=== PATIENT | female | born 1935 | race Caucasian/White ===

== ENCOUNTER 2019-12-15 10:55 | Inpatient (IN) ==
--- NOTE | 2019-12-15 11:25 | Emergency Department Note ---
Impression & Plan Pelvic ring fracture, Abdominal pain, lower ED Provider Note NAME: ABRAHAM GONZALEZ AGE: 84 SEX: F ARRIVES VIA: Ambulance INFORMANT: [Patient] ED PROVIDER(S): Franco Pfeiffer MD CHIEF COMPLAINT: Pelvic and lower abdominal pain PLAN: Disposition: Admitted Condition: [Good] MEDICAL DECISION MAKING: Patient presented complaining of lower abdominal and pelvic pain. On examination she had tenderness in the right groin area. The patient felt worse with movement. She had blood work obtained. This was unremarkable. Urinalysis was unremarkable. The patient was treated with a small dose of IV Dilaudid and felt better with this. CT imaging did not reveal any findings within the abdomen and pelvis except for a right ring fracture. On further discussion the patient did note sitting down hard the day before yesterday. Her symptoms started shortly after that. She is having difficulty ambulating. It did seem that she had some slight confusion on questioning therefore CT of her head was performed and did not reveal any acute traumatic findings. Because of the findings on the CT and her difficulty ambulating I felt management in the hospital would be necessary. Consultation was made with the hospitalist service. The patient was evaluated in the ER for further management. I gave my usual and customary discussion regarding this issue. Triage Nursing notes reviewed and agree them. Vital Signs: reviewed and remarkable for [no significant abnormalities] Differential diagnosis: Appendicitis, ovarian cyst, ovarian torsion, ectopic , TOA, PID, infections, diverticulitis, UTI, obstruction, mesenteric ischemia, aortic pathology, inflammatory bowel disease, renal colic, PUD, pancreatitis, biliary pathology, hernia, volvulus, constipation, musculoskeletal as well as other pathologies. ER treatment provided: IV Dilaudid 0.25 mg IV Zofran Diagnostics interpreted by me: Cardiac Monitoring: Cardiac monitoring ordered by me: The patient was placed on continuous cardiac monitoring and observed. It revealed a normal sinus rhythm at 70 beats per minute without ectopy or evidence of dysrhythmia. Laboratory studies: Unremarkable CBC and chemistry panel.Lactate negative. LFTs and lipase negative. Urinalysis did not reveal any signs of infection. Imaging studies: Right pubic ring fracture on CT imaging of the abdomen pelvis. I refer you to the EMR for further details. Consultation(s): [facility] [address] [facility] hospitalist service. HPI: The patient is a 84 year old female who presents to the Emergency Room with complaints of lower abdominal pain. This started this morning at 0700 and is intermittent and sharp. The patient also notes the following associated symptoms, pain radiating into the back, mild constipation, dry throat. The patient has tried no medication for relieving factors. Current pain is rated as 10/10 at its max, but currently 0 with rest. Pain worsens with Pt denies LOC, headache, fevers, chills, diaphoresis, visual changes, neck pain, chest pain, breathing difficulties, nausea, vomiting, back pain, melena, hematochezia, urinary symptoms, numbness, weakness, lymphadenopathy, rash, or other complaints. ROS: See above HPI for pertinent positives & negatives. A total of [10] systems reviewed and were otherwise negative. PAST MEDICAL HISTORY:[See Below] chronic kidney disease, hypothyroidism PAST SURGICAL HISTORY:[See Below] FAMILY HISTORY:[See Below] SOCIAL HISTORY:[See Below] lives alone HOME MEDICATIONS:[See Below] ALLERGIES:[See Below] VITALS:[See Below] PHYSICAL EXAMINATION: GENERAL: Awake, alert, well-appearing, in no distress HENT: Normocephalic, atraumatic. Oropharynx unremarkable. EYES: Normal conjunctiva. Sclera non-icteric. NECK: Inspection normal. Non-tender. Supple. No nuchal rigidity. FROM. No masses. RESPIRATORY: Clear to auscultation. No wheezes. No rales. Normal respiratory effort. CARDIAC: Normal rate. Normal rhythm. No murmurs. No rubs. Extremities warm and well perfused. Pulses equal. No JVD. GI: Soft, non-distended. Lower abdominal tenderness to palpation. No rebound or guarding. No masses. RECTAL: Deferred. MUSCULOSKELETAL: Atraumatic. Chest examination reveals no tenderness. The back is symmetrical on inspection without obvious abnormality. There is no CVA tenderness to palpation. No joint edema. LOWER EXTREMITIES: Calves are equal size bilaterally and non-tender. No edema. No discoloration. NEURO: Normal sensorium. No sensory or motor deficits noted. SKIN: No rash or jaundice noted. 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 CKD (chronic kidney disease), stage III Depression Dyslipidemia Heart disease Hypothyroid Osteoarthritis Vitamin D deficiency Surgical History (Updated 12/15/19 @ 15:23 by Micki Velásquez PA-C) H/O partial mastectomy H/O vein stripping History of left heart catheterization History of lumpectomy of left breast Hx of appendectomy Hx of tonsillectomy S/P coronary artery stent placement Family History (Updated 12/15/19 @ 15:24 by Micki Velásquez PA-C) Mother Cancer Hodgkins Father Heart disease Diabetes Stroke Hypertension Son Myocardial infarction Other No pertinent family history Social History Preferred Language: German Communication Ability: Effective Hearing Ability: Hard of Hearing Mobile Security Architect Required: No Beliefs That Will Affect Care: None marital status: / Current Living Situation: Alone current occupational status: retired Other Information That Helps Us Care for You: No Feels Safe at Home: Yes Safety Concerns: Feels Safe At This Time Smoking Status: Former smoker Tobacco Type: cigarettes ; Hx Alcohol Use: No Hx Substance Use: No Allergies Allergies Allergy/AdvReac Type Severity Reaction Status Date / Time atorvastatin Allergy Mild "ACHING Verified 12/15/19 12:47 MUSCLES AND BONES" codeine Allergy Unknown Unknown Verified 12/15/19 12:47 Penicillins Allergy Unknown Unknown Verified 12/15/19 12:47 tetracycline Allergy Unknown Unknown Verified 12/15/19 12:47 clonazepam AdvReac Mild created Verified 12/15/19 12:47 anxiety opium tincture AdvReac Mild dizziness Verified 12/15/19 12:47 diazepam AdvReac Anxiety Verified 12/15/19 12:47 Home Meds Home Medications Medication Instructions Recorded Confirmed amlodipine 2.5 mg PO QAM 03/05/19 12/15/19 aspirin 81 mg PO HS 03/05/19 12/15/19 bupropion HCl 100 mg PO QAM 03/05/19 12/15/19 isosorbide mononitrate 60 mg PO QAM 03/05/19 12/15/19 levothyroxine 75 mcg PO QAM 03/05/19 12/15/19 nitroglycerin 0.4 mg SUBLINGUAL DIRECTED PRN 03/05/19 12/15/19 rosuvastatin 40 mg PO QAM 03/05/19 12/15/19 venlafaxine 75 mg PO QAM 03/05/19 12/15/19 venlafaxine 150 mg PO QAM 03/05/19 12/15/19 nystatin 1 appln TOP BID PRN 06/14/19 12/15/19 potassium chloride 10 meq PO BID 12/15/19 12/15/19 Results & Data (ED) Vital Signs Vital Signs - 24 hr 12/15/19 11:03 12/15/19 11:48 12/15/19 12:37 Temperature 36.6 C Temperature Source Oral Pulse Rate 78 67 Pulse Rate from SpO2 Sensor 66 Respiratory Rate 18 19 Respiratory Effort / Characteristics Non-Labored Spontaneous Respiratory Depth Normal Respiratory Pattern Regular Blood Pressure 145/72 H 111/66 Blood Pressure Mean 96 90 Blood Pressure Position Lying Pulse Oximetry 96 97 95 Oxygen Delivery Method Room Air Room Air Room Air Sepsis Recent Fever Within 48 Hours No Sepsis New/Unexplained Change in Mental Status No Sepsis Action Taken by Nursing No Action Required 12/15/19 12:41 12/15/19 13:00 12/15/19 13:30 Temperature Temperature Source Pulse Rate 66 69 69 Pulse Rate from SpO2 Sensor 66 69 70 Respiratory Rate 17 18 20 Respiratory Effort / Characteristics Respiratory Depth Respiratory Pattern Blood Pressure Blood Pressure Mean Blood Pressure Position Pulse Oximetry 96 94 95 Oxygen Delivery Method Room Air Room Air Room Air Sepsis Recent Fever Within 48 Hours Sepsis New/Unexplained Change in Mental Status Sepsis Action Taken by Nursing 12/15/19 13:31 12/15/19 13:32 12/15/19 14:00 Temperature Temperature Source Pulse Rate 70 68 71 Pulse Rate from SpO2 Sensor 70 68 72 Respiratory Rate 18 18 23 Respiratory Effort / Characteristics Respiratory Depth Respiratory Pattern Blood Pressure 125/67 118/61 Blood Pressure Mean 97 80 Blood Pressure Position Pulse Oximetry 95 95 93 Oxygen Delivery Method Room Air Room Air Room Air Sepsis Recent Fever Within 48 Hours Sepsis New/Unexplained Change in Mental Status Sepsis Action Taken by Nursing 12/15/19 14:01 12/15/19 14:30 12/15/19 14:31 Temperature Temperature Source Pulse Rate 72 75 72 Pulse Rate from SpO2 Sensor 73 75 68 Respiratory Rate 17 15 17 Respiratory Effort / Characteristics Respiratory Depth Respiratory Pattern Blood Pressure 115/74 Blood Pressure Mean 97 Blood Pressure Position Pulse Oximetry 95 96 97 Oxygen Delivery Method Room Air Room Air Room Air Sepsis Recent Fever Within 48 Hours Sepsis New/Unexplained Change in Mental Status Sepsis Action Taken by Nursing Laboratory Data Result diagrams: 12/15/19 11:43 12/15/19 11:43 Lab Results 12/15/19 12/15/19 12/15/19 Range/Units 11:43 11:43 11:43 WBC 7.83 (4.8-10.8) K/uL RBC 4.22 (4.2-5.4) M/uL Hgb 12.1 (12.0-16.0) g/dL Hct 37.8 (37-47) % MCV 89.6 (80-100) fL MCH 28.7 (25-34) pg MCHC 32.0 (32-36) g/dL RDW Std Deviation 46.2 (36.4-46.3) fL RDW Coeff of Ever 14.1 (11.5-14.5) % Plt Count 192 (130-400) K/uL MPV 10.2 (7.4-10.4) fL Immature Gran % (Auto) 0.3 % Neut % (Auto) 68.0 % Lymph % (Auto) 18.4 % [place] % (Auto) 9.8 % Eos % (Auto) 3.2 % Baso % (Auto) 0.3 % Immature Gran # (Auto) 0.02 (0.00-0.02) K/uL Neut # (Auto) 5.33 (1.4-6.5) K/uL Lymph # (Auto) 1.44 (1.2-3.4) K/uL [place] # (Auto) 0.77 H (0.11-0.59) K/uL Eos # (Auto) 0.25 (0-0.5) K/uL Baso # (Auto) 0.02 (0-0.2) K/uL Sodium 141 (136-145) mmol/L Potassium 3.5 (3.5-5.1) mmol/L Chloride 108 H (98-107) mmol/L Carbon Dioxide 27 (21-32) mmol/L Anion Gap 6.0 (3-11) BUN 18 (7-18) mg/dl Creatinine 0.97 (0.6-1.2) mg/dl Est Cr Clr Drug Dosing 43.1 ml/min Est GFR ( Amer) 62.2 Est GFR (Non-Af Amer) 53.6 BUN/Creatinine Ratio 18.7 (10-20) Glucose 92 (70-99) mg/dl Lactate 0.7 (0.4-2.0) mmol/L Calcium 9.1 (8.5-10.1) mg/dl Total Bilirubin 0.6 (0.2-1) mg/dl AST 16 (15-37) U/L ALT 32 (12-78) U/L Alkaline Phosphatase 64 (45-117) U/L Total Protein 6.9 (6.4-8.2) gm/dl Albumin 3.4 (3.4-5.0) gm/dl Globulin 3.5 (2.5-4.0) gm/dl Albumin/Globulin Ratio 1.0 (0.9-2) Lipase 87 (73-393) U/L 25-OH Vitamin D Total (30-100) ng/ml TSH (0.300-4.500) uIu/ml Urine Color Urine Appearance (Clear) Urine pH (4.5-7.5) Ur Specific [place] (1.000-1.030) Urine Protein (Negative) Urine Glucose (UA) (Negative) Urine Ketones (Negative) Urine Blood (Negative) Urine Nitrite (Negative) Urine Bilirubin (Negative) Urine Urobilinogen (Negative) Ur Leukocyte Esterase (Negative) Urine WBC (Auto) (0-5) /hpf Urine RBC (Auto) (0-4) /hpf U Hyaline Cast (Auto) (0-5) /lpf U Epithel Cells (Auto) (0-5) /lpf Urine Bacteria (Auto) (Negative) 12/15/19 12/15/19 12/15/19 Range/Units 11:43 11:43 13:30 WBC (4.8-10.8) K/uL RBC (4.2-5.4) M/uL Hgb (12.0-16.0) g/dL Hct (37-47) % MCV (80-100) fL MCH (25-34) pg MCHC (32-36) g/dL RDW Std Deviation (36.4-46.3) fL RDW Coeff of Ever (11.5-14.5) % Plt Count (130-400) K/uL MPV (7.4-10.4) fL Immature Gran % (Auto) % Neut % (Auto) % Lymph % (Auto) % [place] % (Auto) % Eos % (Auto) % Baso % (Auto) % Immature Gran # (Auto) (0.00-0.02) K/uL Neut # (Auto) (1.4-6.5) K/uL Lymph # (Auto) (1.2-3.4) K/uL [place] # (Auto) (0.11-0.59) K/uL Eos # (Auto) (0-0.5) K/uL Baso # (Auto) (0-0.2) K/uL Sodium (136-145) mmol/L Potassium (3.5-5.1) mmol/L Chloride (98-107) mmol/L Carbon Dioxide (21-32) mmol/L Anion Gap (3-11) BUN (7-18) mg/dl Creatinine (0.6-1.2) mg/dl Est Cr Clr Drug Dosing ml/min Est GFR ( Amer) Est GFR (Non-Af Amer) BUN/Creatinine Ratio (10-20) Glucose (70-99) mg/dl Lactate (0.4-2.0) mmol/L Calcium (8.5-10.1) mg/dl Total Bilirubin (0.2-1) mg/dl AST (15-37) U/L ALT (12-78) U/L Alkaline Phosphatase (45-117) U/L Total Protein (6.4-8.2) gm/dl Albumin (3.4-5.0) gm/dl Globulin (2.5-4.0) gm/dl Albumin/Globulin Ratio (0.9-2) Lipase (73-393) U/L 25-OH Vitamin D Total 25.7 L (30-100) ng/ml TSH 2.800 (0.300-4.500) uIu/ml Urine Color Yellow Urine Appearance Cloudy A (Clear) Urine pH 7.5 (4.5-7.5) Ur Specific [place] 1.016 (1.000-1.030) Urine Protein 2+ H (Negative) Urine Glucose (UA) Negative (Negative) Urine Ketones Negative (Negative) Urine Blood Trace H (Negative) Urine Nitrite Negative (Negative) Urine Bilirubin Negative (Negative) Urine Urobilinogen Negative (Negative) Ur Leukocyte Esterase Negative (Negative) Urine WBC (Auto) 0 (0-5) /hpf Urine RBC (Auto) 0-4 (0-4) /hpf U Hyaline Cast (Auto) 1-5 (0-5) /lpf U Epithel Cells (Auto) 20-30 H (0-5) /lpf Urine Bacteria (Auto) Negative (Negative) Administered Medications Hydrocodone Bitart/Acetaminophen ([place] 5/325) 1 tab PO Q6 PRN PRN Reason: Moderate Pain Stop: 12/29/19 17:33 Last Admin: 12/15/19 18:12 Dose: 1 tab Documented by: [id number] Discontinued Medications Hydromorphone HCl (Dilaudid) 0.25 mg IV NOW STA Stop: 12/15/19 12:30 Last Admin: 12/15/19 12:39 Dose: 0.25 mg Documented by: [id number] Ondansetron HCl (Zofran) 4 mg IV NOW STA Stop: 12/15/19 12:30 Last Admin: 12/15/19 12:39 Dose: 4 mg Documented by: [id number] Discharge Plan Visit Data *Final* Discharge Date/Time: 12/15/19 16:51 Chief Complaint: Groin Pain Stated Complaint: groin / upper leg pain ED Provider: Franco Pfeiffer Discharge Problem: Pelvic ring fracture, Abdominal pain, lower Patient Disposition: Admitted As Inpatient Discharge Instructions Interventions: ED Discharge Assessment Last Done: 12/15/19 16:51
[2019-12-15 11:56] LABS: Basophils # (auto) 0.02 K/uL (0-0.2); Basophils % (auto) 0.3 %; Eosinophils # (auto) 0.25 K/uL (0-0.5); Eosinophils % (auto) 3.2 %; Hematocrit (blood only) 37.8 % (37-47); Hemoglobin 12.1 g/dL (12.0-16.0); Immature Granulocytes # (auto) 0.02 K/uL (0.00-0.02); Immature Granulocytes % (auto) 0.3 %; Lymphocytes # (auto) 1.44 K/uL (1.2-3.4); Lymphocytes % (auto) 18.4 %; Mean Corpuscular Hemoglobin 28.7 pg (25-34); Mean Corpuscular Volume 89.6 fL (80-100); Mean Platelet Volume 10.2 fL (7.4-10.4); Monocytes # (auto) 0.77 K/uL (0.11-0.59); Monocytes % (auto) 9.8 %; Neutrophils # (auto) 5.33 K/uL (1.4-6.5); Platelet Count 192 K/uL (130-400); RDW Coefficient of Variation 14.1 % (11.5-14.5); RDW Standard Deviation 46.2 fL (36.4-46.3); Red Blood Count 4.22 M/uL (4.2-5.4); White Blood Count 7.83 K/uL (4.8-10.8)
[2019-12-15 12:12] LABS: Albumin Level 3.4 gm/dl (3.4-5.0); BUN Creatinine Ratio 18.7 (10-20); Calcium 9.1 mg/dl (8.5-10.1); Creatinine Clr Calc Pharmacy 43.1 ml/min; Est GFR (African American) 62.2; Est GFR (Non-African American) 53.6; Potassium 3.5 mmol/L (3.5-5.1)
[2019-12-15 12:15] LABS: Bilirubin,Total 0.6 mg/dl (0.2-1); Globulin 3.5 gm/dl (2.5-4.0); Total Protein 6.9 gm/dl (6.4-8.2)
[2019-12-15] MEDS ORDERED: ONDANSETRON INJ 2 MG/ML 2 ML VIAL IV STA (12:29)
[2019-12-15] MEDS ORDERED: HYDROmorphone INJ 0.5 MG/0.5 ML SYR IV STA (12:29)
--- NOTE | 2019-12-15 12:46 | CT Scan Report ---
CT abd pelvis wo con CT DOSE: 370.99 mGy.cm HISTORY: Pain. Nausea. lower abd pain, constipation TECHNIQUE: Multiaxial CT images of the abdomen and pelvis were performed without contrast. A dose lo wering technique was utilized adhering to the principles of ALARA. COMPARISON STUDY: None. FINDINGS: The lung bases are clear. The unenhanced liver, spleen, gallbladder, pancreas, kidneys, and adrenal glands are within normal limits. No bowel wall thickening or obstruction. The pelvic organs are unremarkable. No suspicious lytic or blastic osseous lesions. Nondisplaced cortical fracture righ t pubic ring. Gallstones are present within the gallbladder lumen. Nonobstructive bowel pattern. Unre markable fecal load. IMPRESSION: 1. Gallstones. 2. Nondisplaced fracture right pubic ring. 3. Otherwise negative study. 4. Normal bowel pattern. ACT 112: Negative or not required by law. The above report was generated using voice recognition software. It may contain grammatical, syntax or spelling errors. Electronically signed by: Casey Chapman M.D. 12/15/2019 12:44 PM
[2019-12-15 13:43] LABS: Appearance Urine Cloudy (Clear); Bacteria Urine Automated Negative (Negative); Bilirubin Urine Negative (Negative); Blood Urine Trace (Negative); Color Urine Yellow; Epithelial Cell Urine Auto 20-30 /lpf (0-5); Glucose Urine UA Negative (Negative); Ketones Urine Negative (Negative); Leukocyte Esterase Urine Negative (Negative); Nitrite Urine Negative (Negative); RBC Urine Automated 0-4 /hpf (0-4); Specific Gravity Urine 1.016 (1.000-1.030); Urobilinogen Urine Negative (Negative); WBC Urine Automated 0 /hpf (0-5); pH Urine 7.5 (4.5-7.5)
[2019-12-15 14:06] LABS: Protein Urine 2+ (Negative)
[2019-12-15 14:07] LABS: Sulfosalicylic Acid Urine Positive (Negative)
--- NOTE | 2019-12-15 14:50 | CT Scan Report ---
CT SCAN OF THE BRAIN WITHOUT IV CONTRAST CLINICAL HISTORY: Fall. Head injury. COMPARISON STUDY: CT of the brain dated 07/23/2019. TECHNIQUE: Unenhanced axial CT scan of the brain is performed from the vertex to the skull base. A do se lowering technique was utilized adhering to the principles of ALARA. CT DOSE: 614.27 mGy.cm FINDINGS: Brain parenchyma: There are age-related involutional changes noting mild subcortical and periventric ular microangiopathic change. There is no hemorrhage, mass effect, or evidence of acute territorial i schemia by CT criteria. Harmon-white matter differentiation is preserved. No extra-axial fluid collecti on is seen. Ventricles, sulci, cisterns: Prominent secondary to involutional change. Intracranial vasculature: There is atherosclerotic calcification of the cavernous carotid and vertebr al arteries. Calvarium: The skeletal structures are osteopenic. No depressed calvarial fracture is identified. Sinuses and mastoids: The visualized paranasal sinuses are clear. The mastoid air cells are well pneu matized. Orbits: The bony orbits are grossly intact. There are bilateral ocular lens implants. IMPRESSION: There is no hemorrhage, mass effect, or evidence of acute territorial ischemia by CT rayt amena. ACT 112: Negative or not required by law. Electronically signed by: Yazan Frye M.D. 12/15/2019 2:49 PM
--- NOTE | 2019-12-15 15:11 | History & Physical Report ---
Date of Service December 15, 2019 Assessment & Plan (1) Pelvic ring fracture: (2) Left groin pain: Patient with left lower abdominal/groin pain. Abdominal/pelvic CT showed left pubic ring fracture that is nondisplaced. Patient was having a lot of pain on presentation to the ED- improved after dose of IV analgesia in the ED. Continue PRN Tylenol mild pain and PRN [place] moderate/severe pain. Confirmed with pharmacy that patient has had [place] in the past without reaction (codeine allergy listed) Consult Orthopedics. NPO after midnight pending Ortho evaluation. Check Vit D level PT/OT (3) CKD (chronic kidney disease), stage III: Creatinine 0.97- baseline. Stable. 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 If orthopedics feel that surgical intervention is necessary, will need to discuss with Cardio. (6) Hypothyroid: Continue levothyroxine. Check TSH due to question of mild confusion upon presentation (7) DVT prophylaxis: SQ Heparin Q12h History of Present Illness Chief Complaint: Groin pain Primary Care Provider: Saul Adamson DO Patient is an 84 yo female with history of hypothyroidism, HTN, dyslipidemia, CKD III, CAD s/p angioplasty w/RCA stent, depression, and arthritis who presented to the ED with complaints of left groin pain/lower abdominal pain. She states that she woke up this morning with severe "spasms" in her left lower abdomen/groin area. She had pain down both legs and into her left upper thigh. She has not had any recent falls. She does recall sitting down "really hard" on a wooden chair at home a couple days ago. She does also note that she had some pain with walking last evening in her left groin & left leg. She typically uses a walker at home. She also has a wheelchair but has a hard time moving it around, so she doesn't use it often. Upon presentation, patient had labs which are unremarkable. No anemia. UA did not show any Nitrite, leukocyte esterase or WBCs. CT of the Abd/Pelvis showed no acute intra-abdominal abnormalities, but it did note a left nondisplaced pubic ring fracture. Patient's last DEXA was 2017 which showed moderate risk for fracture but no osteoporosis. Allergies Allergy/AdvReac Type Severity Reaction Status Date / Time atorvastatin Allergy Mild "ACHING Verified 12/15/19 12:47 MUSCLES AND BONES" codeine Allergy Unknown Unknown Verified 12/15/19 12:47 Penicillins Allergy Unknown Unknown Verified 12/15/19 12:47 tetracycline Allergy Unknown Unknown Verified 12/15/19 12:47 clonazepam AdvReac Mild created Verified 12/15/19 12:47 anxiety opium tincture AdvReac Mild dizziness Verified 12/15/19 12:47 diazepam AdvReac Anxiety Verified 12/15/19 12:47 Home Medications Home Medications Medication Instructions Recorded Confirmed Type amlodipine 2.5 mg PO QAM 03/05/19 12/15/19 History aspirin 81 mg PO HS 03/05/19 12/15/19 History bupropion HCl 100 mg PO QAM 03/05/19 12/15/19 History isosorbide mononitrate 60 mg PO QAM 03/05/19 12/15/19 History levothyroxine 75 mcg PO QAM 03/05/19 12/15/19 History nitroglycerin 0.4 mg SUBLINGUAL DIRECTED PRN 03/05/19 12/15/19 History rosuvastatin 40 mg PO QAM 03/05/19 12/15/19 History venlafaxine 75 mg PO QAM 03/05/19 12/15/19 History venlafaxine 150 mg PO QAM 03/05/19 12/15/19 History nystatin 1 appln TOP BID PRN 06/14/19 12/15/19 History potassium chloride 10 meq PO BID 12/15/19 12/15/19 History Past Med/Surg History Medical History (Updated 12/15/19 @ 19:05 by Franco Pfeiffer MD) 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 CKD (chronic kidney disease), stage III Depression Dyslipidemia Heart disease Hypothyroid Osteoarthritis Vitamin D deficiency Surgical History (Updated 12/15/19 @ 15:23 by Mikci Velásquez PA-C) H/O partial mastectomy H/O vein stripping History of left heart catheterization History of lumpectomy of left breast Hx of appendectomy Hx of tonsillectomy S/P coronary artery stent placement Family History (Updated 12/15/19 @ 15:24 by Micki Velásquez PA-C) Mother Cancer Hodgkins Father Heart disease Diabetes Stroke Hypertension Son Myocardial infarction Other No pertinent family history Social History Preferred Language: Polish Communication Ability: Effective Hearing Ability: Hard of Hearing Teacher Ballet Required: No Beliefs That Will Affect Care: None marital status: / Current Living Situation: Alone current occupational status: retired Other Information That Helps Us Care for You: No Feels Safe at Home: Yes Safety Concerns: Feels Safe At This Time Smoking Status: Former smoker Tobacco Type: cigarettes ; Hx Alcohol Use: No Hx Substance Use: No Review of Systems Review of Systems: All systems reviewed & are unremarkable except as noted in HPI & below Physical Exam Constitutional: WD/WN, vitals as above Eyes: PERRL, conjunctivae normal, anicteric sclerae ENMT: external ear and nose normal, oropharynx normal Neck: trachea midline, no thyromegaly Respiratory: normal respiratory effort, lungs clear to auscultation Cardiovascular: Rate/Rhythm: regular rate and regular rhythm Gastrointestinal (Abdomen): Inspection/Auscultation: normal bowel sounds; abdomen not distended Percussion/Palpation: abdomen soft; abdomen nontender and no guarding Musculoskeletal: Right leg appears to be slightly shorter than left while laying in bed. Uncertain if this is positional during the time of exam. Tenderness over the left groin and into the left anterior thigh. Skin: no rashes, warm and dry Neurologic: PERRL, EOMI, accommodation nl, no face palsy, no dysarthria CN's II-XI intact bilaterally Psychiatric: A+Ox3, euthymic affect Results & Data Results & Data ([facility]) Vital Signs (Past 12 Hours) Vital Signs Temp Pulse Resp BP Pulse Ox 12/15/19 14:31 72 17 97 12/15/19 14:30 75 15 115/74 96 12/15/19 14:01 72 17 95 12/15/19 14:00 71 23 118/61 93 12/15/19 13:32 68 18 95 12/15/19 13:31 70 18 125/67 95 12/15/19 13:30 69 20 95 12/15/19 13:00 69 18 94 12/15/19 12:41 66 17 96 12/15/19 12:37 67 19 111/66 95 12/15/19 11:48 97 12/15/19 11:03 36.6 C 78 18 145/72 H 96 Laboratory Results Laboratory Results - last 24 hr 12/15/19 12/15/19 12/15/19 11:43 11:43 11:43 WBC 7.83 RBC 4.22 Hgb 12.1 Hct 37.8 MCV 89.6 MCH 28.7 MCHC 32.0 RDW Std Deviation 46.2 RDW Coeff of Ever 14.1 Plt Count 192 MPV 10.2 Immature Gran % (Auto) 0.3 Neut % (Auto) 68.0 Lymph % (Auto) 18.4 Weld % (Auto) 9.8 Eos % (Auto) 3.2 Baso % (Auto) 0.3 Immature Gran # (Auto) 0.02 Neut # (Auto) 5.33 Lymph # (Auto) 1.44 Weld # (Auto) 0.77 H Eos # (Auto) 0.25 Baso # (Auto) 0.02 Sodium 141 Potassium 3.5 Chloride 108 H Carbon Dioxide 27 Anion Gap 6.0 BUN 18 Creatinine 0.97 Est Cr Clr Drug Dosing 43.1 Est GFR ( Amer) 62.2 Est GFR (Non-Af Amer) 53.6 BUN/Creatinine Ratio 18.7 Glucose 92 Lactate 0.7 Calcium 9.1 Total Bilirubin 0.6 AST 16 ALT 32 Alkaline Phosphatase 64 Total Protein 6.9 Albumin 3.4 Globulin 3.5 Albumin/Globulin Ratio 1.0 Lipase 87 25-OH Vitamin D Total TSH Urine Color Urine Appearance Urine pH Ur Specific [place] Urine Protein Urine Glucose (UA) Urine Ketones Urine Blood Urine Nitrite Urine Bilirubin Urine Urobilinogen Ur Leukocyte Esterase Urine WBC (Auto) Urine RBC (Auto) U Hyaline Cast (Auto) U Epithel Cells (Auto) Urine Bacteria (Auto) 12/15/19 12/15/19 12/15/19 11:43 11:43 13:30 WBC RBC Hgb Hct MCV MCH MCHC RDW Std Deviation RDW Coeff of Ever Plt Count MPV Immature Gran % (Auto) Neut % (Auto) Lymph % (Auto) Weld % (Auto) Eos % (Auto) Baso % (Auto) Immature Gran # (Auto) Neut # (Auto) Lymph # (Auto) Weld # (Auto) Eos # (Auto) Baso # (Auto) Sodium Potassium Chloride Carbon Dioxide Anion Gap BUN Creatinine Est Cr Clr Drug Dosing Est GFR ( Amer) Est GFR (Non-Af Amer) BUN/Creatinine Ratio Glucose Lactate Calcium Total Bilirubin AST ALT Alkaline Phosphatase Total Protein Albumin Globulin Albumin/Globulin Ratio Lipase 25-OH Vitamin D Total Pending TSH Pending Urine Color Yellow Urine Appearance Cloudy A Urine pH 7.5 Ur Specific [place] 1.016 Urine Protein 2+ H Urine Glucose (UA) Negative Urine Ketones Negative Urine Blood Trace H Urine Nitrite Negative Urine Bilirubin Negative Urine Urobilinogen Negative Ur Leukocyte Esterase Negative Urine WBC (Auto) 0 Urine RBC (Auto) 0-4 U Hyaline Cast (Auto) 1-5 U Epithel Cells (Auto) 20-30 H Urine Bacteria (Auto) Negative Diagnostic Findings CT Abd/Pelvis: IMPRESSION: 1. Gallstones. 2. Nondisplaced fracture right pubic ring. 3. Otherwise negative study. 4. Normal bowel pattern. CT Head: IMPRESSION: There is no hemorrhage, mass effect, or evidence of acute territorial ischemia by CT criteria. Code Status & VTE Plan VTE Prophylaxis Plan VTE Prophylaxis will be ordered: Yes Supervising Physician Co-Signing Physician Notes Patient is an 84-year-old female with history of hypertension, dyslipidemia, CKD 3, CAD and other medical problems presents with history of left groin pain. She reports associated spasms in the region. She admits to sitting hard on her buttocks a couple of days ago which initiated the pain. She uses a walker for ambulation at baseline. Please review HPI for complete details of presentation. Imaging studies suggestive of nondisplaced fracture of the right pubic ring. On exam patient is moderately built and nourished, normocephalic atraumatic, lungs clear to auscultation, normal breath sounds, S1-S2,+ murmur, abdomen soft nontender, no pedal edema, left pelvic/groin tenderness, right lower extremity shortened when compared to left. Grossly no focal neurological deficits. Patient is admitted for management of nondisplaced pelvic ring fracture, ambulatory dysfunction. Will control pain. Bowel regimen to prevent constipation. Consulted orthopedics. PT OT evaluation needed. Vitamin D levels low. Will start on vitamin D supplements. May need placement. I personally reviewed the record. Patient is interviewed and examined at bedside. Patient's care is coordinated with Micki Velásquez PA-C. Please refer to the documentation above for details of patient's presentation and for discussion of other issues.
[2019-12-15] MEDS ORDERED: ACETAMINOPHEN 325 MG TAB PO PRN (17:34)
[2019-12-15] MEDS: HYDROCODONE/ACETAMOPHEN 5/325MG TAB PO PRN ×2 (18:12→22:25)
[2019-12-15] MEDS ORDERED: MoRPHine SULFATE 2 MG/ML CARP ONE (20:00)
[2019-12-15] MEDS: ASPIRIN 81 MG ECTAB PO SCH (22:16)
[2019-12-15] MEDS: POTASSIUM CHLORIDE 10 MEQ TABCR PO SCH (22:16)
[2019-12-15] MEDS: HEPARIN SOD 5,000 UNIT/0.5 ML VIAL SQ SCH (22:17)
[2019-12-16] MEDS: LEVOTHYROXINE SODIUM 75 MCG TABLET PO SCH (04:21)
[2019-12-16 07:24] LABS: Hematocrit (blood only) 39.6 % (37-47); Hemoglobin 12.9 g/dL (12.0-16.0); Mean Corpuscular Hemoglobin 29.3 pg (25-34); Mean Corpuscular Hgb Conc 32.6 g/dL (32-36); Mean Corpuscular Volume 89.8 fL (80-100); Mean Platelet Volume 10.7 fL (7.4-10.4); Platelet Count 177 K/uL (130-400); RDW Coefficient of Variation 13.9 % (11.5-14.5); RDW Standard Deviation 46.1 fL (36.4-46.3); Red Blood Count 4.41 M/uL (4.2-5.4)
[2019-12-16 07:48] LABS: BUN Creatinine Ratio 14.6 (10-20); Calcium 8.8 mg/dl (8.5-10.1); Creatinine Clr Calc Pharmacy 47.6 ml/min; Est GFR (African American) 75.1; Est GFR (Non-African American) 64.8; Potassium 3.6 mmol/L (3.5-5.1)
[2019-12-16] MEDS: HEPARIN SOD 5,000 UNIT/0.5 ML VIAL SQ SCH ×2 (08:58→20:59)
[2019-12-16] MEDS: HYDROCODONE/ACETAMOPHEN 5/325MG TAB PO PRN ×2 (08:58→16:03)
[2019-12-16] MEDS: ISOSORBIDE MONO EXTENDED REL 60 MG TABCR PO SCH (08:59)
[2019-12-16] MEDS: AMLODIPINE BESYLATE 5 MG TAB PO SCH (08:59)
[2019-12-16] MEDS: POTASSIUM CHLORIDE 10 MEQ TABCR PO SCH ×2 (08:59→21:02)
[2019-12-16] MEDS: VENLAFAXINE HCL XR 150 MG CAPXR PO SCH (08:59)
[2019-12-16] MEDS: VENLAFAXINE HCL XR 75 MG CAPXR PO SCH (08:59)
[2019-12-16] MEDS: ROSUVASTATIN CALCIUM 20 MG TAB PO SCH (08:59)
[2019-12-16] MEDS: BuPROPion SR 100 MG TABCR PO SCH (08:59)
[2019-12-16] MEDS: CHOLECALCIFEROL 1,000 UNITS 25 MCG TAB PO SCH (09:03)
--- NOTE | 2019-12-16 11:12 | Orthopedic Consultation ---
Date of Consultation December 16, 2019 Assessment & Plan (1) Pelvic ring fracture: Right pubic ring fracture I will have Dr. Griffiths review her films today during his rounds. Most likely we will plan either partial weightbearing versus weightbearing as tolerated on the right lower extremity with continued pain control management and PT and OT protocols. We will keep her n.p.o. at this point in time until he has reviewed her films. Supervising Physician Co-Signing Physician Notes I performed a consultation on this patient today and saw her at bedside. She is awake and alert and was relatively comfortable at the time. I did speak with her at length and I also spoke with her son on the telephone to share my findings with him. I reviewed the CT scans available and agree that this is a minimally displaced right pubic ring fracture that should be treated nonoperatively. Patient may weight-bear as tolerated using a walker for the next 6 weeks. I recommend some sort of assisted care environment whether it be rehab or fdc with physical therapy capability. She should follow-up in my clinic in approximately 6 weeks for radiographs of the pelvis. Thank for the opportunity to consult in care of this patient. Jason Griffiths DO History of Present Illness Reason for Consultation: Pelvic fracture Attending Physician: Alexander Gomez MD History of Present Illness Patient is a 84-year white female who was admitted last night for right pubic ring fracture. Currently the patient is awake and alert. She is answering questions appropriately. She states that a few days ago, she sat down fairly hard where she would pop herself down into the a firm chair. She states she had done so rather aggressively and since that time has been having some increasing difficulty with ambulation and having pain in the right hip and groin that worsened over the last day prior to admission. She got to the point where the pain was excruciating and she came into the emergency room. She denies any recent falls. She states that she uses a walker to ambulate with at home and also at times would use a wheelchair depending on how she is feeling. She states she does not use the wheelchair much because of the difficulty getting around in her home and it. Currently she is having moderate pain and has asked nursing staff to get her some pain medications. Allergies Allergy/AdvReac Type Severity Reaction Status Date / Time atorvastatin Allergy Mild "ACHING Verified 12/15/19 12:47 MUSCLES AND BONES" codeine Allergy Unknown Unknown Verified 12/15/19 12:47 Penicillins Allergy Unknown Unknown Verified 12/15/19 12:47 tetracycline Allergy Unknown Unknown Verified 12/15/19 12:47 clonazepam AdvReac Mild created Verified 12/15/19 12:47 anxiety opium tincture AdvReac Mild dizziness Verified 12/15/19 12:47 diazepam AdvReac Anxiety Verified 12/15/19 12:47 Home Medications Home Medications Medication Instructions Recorded Confirmed Type amlodipine 2.5 mg PO QAM 03/05/19 12/15/19 History aspirin 81 mg PO HS 03/05/19 12/15/19 History bupropion HCl 100 mg PO QAM 03/05/19 12/15/19 History isosorbide mononitrate 60 mg PO QAM 03/05/19 12/15/19 History levothyroxine 75 mcg PO QAM 03/05/19 12/15/19 History nitroglycerin 0.4 mg SUBLINGUAL DIRECTED PRN 03/05/19 12/15/19 History rosuvastatin 40 mg PO QAM 03/05/19 12/15/19 History venlafaxine 75 mg PO QAM 03/05/19 12/15/19 History venlafaxine 150 mg PO QAM 03/05/19 12/15/19 History nystatin 1 appln TOP BID PRN 06/14/19 12/15/19 History potassium chloride 10 meq PO BID 12/15/19 12/15/19 History Patient History Medical History 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 CKD (chronic kidney disease), stage III Depression Dyslipidemia Heart disease Hypothyroid Osteoarthritis Vitamin D deficiency Surgical History H/O partial mastectomy H/O vein stripping History of left heart catheterization History of lumpectomy of left breast Hx of appendectomy Hx of tonsillectomy S/P coronary artery stent placement Family History Mother Cancer Hodgkins Father Heart disease Diabetes Stroke Hypertension Son Myocardial infarction Other No pertinent family history Social History Preferred Language: Ch[place] Communication Ability: Effective Hearing Ability: Hard of Hearing Repacker Required: No Beliefs That Will Affect Care: None marital status: / Current Living Situation: Alone current occupational status: retired Other Information That Helps Us Care for You: No Feels Safe at Home: Yes Safety Concerns: Feels Safe At This Time Smoking Status: Former smoker Tobacco Type: cigarettes ; Hx Alcohol Use: No Hx Substance Use: No Review of Systems Review of Systems: All systems reviewed & are unremarkable except as noted in HPI & below Physical Exam Physical Exam: Focusing the exam on the right lower extremity, the patient currently has the hip flexed at approximately 30 degrees which she is trying to find a good position to relieve her discomfort. She currently does not like to fully extend the leg because of causing pain in the groin and hip. She has mild discomfort on palpation of the lateral right hip. Her active range of motion is limited at this point time due to pain in the groin. Passive range of motion is slightly better but limited due to pain at this time. She has no pain on palpation of her right knee and range of motion is limited because of causing pain in the right hip during moving the lower extremity. She has no pain in the right ankle and toes and has good range of motion. Sensation is intact. Left lower extremity is unaffected at this time and taking her through passive range of motion of the hip knee and ankle are benign. Distal pulses are equal bilaterally. Upper extremities appear to be unaffected at this time and she denies any pain in the shoulders elbows and wrists there is no gross motor or sensory loss seen at this time.. Results & Data ([facility]) Vital Signs (Past 12 Hours) Vital Signs Temp Pulse Resp BP Pulse Ox 12/16/19 08:47 143/78 H 12/16/19 08:18 36.8 C 75 16 170/77 H 93 Diagnostic Findings atient: ABRAHAM GONZALEZAdmit Date: 12/15/19 MR#: [id number]: [id number] Acct ID:[id number]: [facility] Zip[facility] [place] [address] Age: 84Location: ED Sex: F Room/Bed: Att Phy:Diagnosis: groin / upper leg pain Sumi Phy: Saul Adamson, DOService Date: 12/15/19 [facility] Phy:Interpreting Phy: Casey Chapman MD Admit Phy: Ordering Phy: Franco Pfeiffer MD cc: ~ CT abd pelvis wo con CT DOSE: 370.99 mGy.cm HISTORY: Pain. Nausea. lower abd pain, constipation TECHNIQUE: Multiaxial CT images of the abdomen and pelvis were performed without contrast. A dose lowering technique was utilized adhering to the principles of ALARA. COMPARISON STUDY: None. FINDINGS: The lung bases are clear. The unenhanced liver, spleen, gallbladder, pancreas, kidneys, and adrenal glands are within normal limits. No bowel wall thickening or obstruction. The pelvic organs are unremarkable. No suspicious lytic or blastic osseous lesions. Nondisplaced cortical fracture right pubic ring. Gallstones are present within the gallbladder lumen. Nonobstructive bowel pattern. Unremarkable fecal load. IMPRESSION: 1. Gallstones. 2. Nondisplaced fracture right pubic ring. 3. Otherwise negative study. 4. Normal bowel pattern.
[2019-12-16] MEDS: MoRPHine SULFATE 2 MG/ML CARP IV PRN ×2 (11:15→21:09)
[2019-12-16] MEDS: SODIUM CHLORIDE 0.9% 500 ML IV SCH ×2 (16:04→21:16)
[2019-12-16] MEDS: ASPIRIN 81 MG ECTAB PO SCH (21:02)
[2019-12-17] MEDS: HYDROCODONE/ACETAMOPHEN 5/325MG TAB PO PRN ×3 (03:55→17:05)
[2019-12-17] MEDS: SODIUM CHLORIDE 0.9% 500 ML IV SCH ×2 (03:56→09:40)
[2019-12-17] MEDS: LEVOTHYROXINE SODIUM 75 MCG TABLET PO SCH (05:42)
[2019-12-17 07:40] LABS: Hematocrit (blood only) 34.7 % (37-47); Hemoglobin 11.3 g/dL (12.0-16.0); Mean Corpuscular Hemoglobin 29.2 pg (25-34); Mean Corpuscular Hgb Conc 32.6 g/dL (32-36); Mean Corpuscular Volume 89.7 fL (80-100); Mean Platelet Volume 10.6 fL (7.4-10.4); Platelet Count 154 K/uL (130-400); RDW Coefficient of Variation 14.1 % (11.5-14.5); RDW Standard Deviation 46.2 fL (36.4-46.3); Red Blood Count 3.87 M/uL (4.2-5.4); White Blood Count 8.91 K/uL (4.8-10.8)
--- NOTE | 2019-12-17 07:46 | Hospitalist Progress Note ---
Date of Service December 16, 2019 Assessment & Plan (1) Pelvic ring fracture: (2) Left groin pain: Patient with lower abdominal/groin pain. Abdominal/pelvic CT showed right pubic ring fracture that is nondisplaced. Patient was having a lot of pain on presentation to the ED- improved after dose of IV analgesia in the ED. Continue PRN Tylenol mild pain and PRN [place] moderate/severe pain. Confirmed with pharmacy that patient has had [place] in the past without reaction (codeine allergy listed) Consult Orthopedics. NPO after midnight pending Ortho evaluation. Check Vit D level PT/OT (3) CKD (chronic kidney disease), stage III: Creatinine 0.97- baseline. Stable. 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 If orthopedics feel that surgical intervention is necessary, will need to discuss with Cardio. (6) Hypothyroid: Continue levothyroxine. Check TSH due to question of mild confusion upon presentation TSH 2.8 - wnl (7) DVT prophylaxis: SQ Heparin Q12h Admission and Anticipated Discharge Date Admission Date: December 15, 2019 Subjective Patient is lying in bed, in no acute distress. Says that her pain is right now not bothering her however when she moves she has some groin/pelvic pain and hip pain. She is also complaining of knee pain from arthritis, however this seems to be chronic. Orthopedic evaluation pending. Currently denies any fevers, chills, chest pain, shortness of breath, abdominal pain, nausea or vomiting. Review of Systems Review of Systems: All systems reviewed & are unremarkable except as noted in HPI & below Constitutional: no fever and no chills Respiratory: no cough and no dyspnea Cardiovascular: no chest pain and no palpitations Gastrointestinal: no abdominal pain, no nausea and no vomiting Physical Exam Physical Exam: Constitutional: Elderly female lying in bed, in no acute distress, WD/WN, vitals as above Eyes: PERRL, conjunctivae normal, anicteric sclerae ENMT: external ear and nose normal, oropharynx normal Neck: trachea midline, no thyromegaly Respiratory: normal respiratory effort, lungs clear to auscultation Cardiovascular: Rate/Rhythm: regular rate and regular rhythm Gastrointestinal (Abdomen): Inspection/Auscultation: normal bowel sounds; abdomen not distended Percussion/Palpation: abdomen soft; abdomen nontender and no guarding Musculoskeletal: Right LE, full extension of the leg causing pain in the groin and hip. +mild discomfort on palpation of the lateral right hip. She has no pain on palpation of her right knee and range of motion is limited because of causing pain in the right hip during moving the lower extremity. Sensation is intact. Left LE is unaffected, able to move left lower extremity spontaneously without difficulty. Skin: no rashes, warm and dry Neurologic: PERRL, EOMI, accommodation nl, no face palsy, no dysarthria CN's II-XI intact bilaterally Psychiatric: A+Ox3, euthymic affect Results & Data Results & Data ([facility]) Vital Signs (Past 12 Hours) Vital Signs Temp Pulse Resp BP Pulse Ox 12/16/19 23:21 36.9 C 80 18 149/76 H 95
[2019-12-17] MEDS: CHOLECALCIFEROL 1,000 UNITS 25 MCG TAB PO SCH (08:25)
[2019-12-17] MEDS: AMLODIPINE BESYLATE 5 MG TAB PO SCH (08:26)
[2019-12-17] MEDS: VENLAFAXINE HCL XR 75 MG CAPXR PO SCH (08:26)
[2019-12-17] MEDS: BuPROPion SR 100 MG TABCR PO SCH (08:26)
[2019-12-17] MEDS: ISOSORBIDE MONO EXTENDED REL 60 MG TABCR PO SCH (08:26)
[2019-12-17] MEDS: POTASSIUM CHLORIDE 10 MEQ TABCR PO SCH ×2 (08:27→20:20)
[2019-12-17] MEDS: VENLAFAXINE HCL XR 150 MG CAPXR PO SCH (08:27)
[2019-12-17] MEDS: ROSUVASTATIN CALCIUM 20 MG TAB PO SCH (08:27)
[2019-12-17] MEDS: MoRPHine SULFATE 2 MG/ML CARP IV PRN ×2 (08:29→22:33)
[2019-12-17 09:01] LABS: BUN Creatinine Ratio 17.1 (10-20); Calcium 8.9 mg/dl (8.5-10.1); Creatinine Clr Calc Pharmacy 45.4 ml/min; Est GFR (African American) 70.9; Est GFR (Non-African American) 61.2; Magnesium 2.3 mg/dl (1.8-2.4); Phosphorus 2.2 mg/dl (2.5-4.9); Potassium 3.8 mmol/L (3.5-5.1)
[2019-12-17] MEDS: HEPARIN SOD 5,000 UNIT/0.5 ML VIAL SQ SCH ×2 (09:40→20:21)
[2019-12-17] MEDS: POLYETHYLENE (MIRALAX) 17 GM PACK PO PRN (13:07)
[2019-12-17] MEDS: POT PHOSPHATE MONOBASIC W/ SOD TAB PO SCH ×3 (13:07→20:22)
--- NOTE | 2019-12-17 15:44 | Hospitalist Progress Note ---
Date of Service December 17, 2019 Assessment & Plan (1) Pelvic ring fracture: (2) Left groin pain: Patient with lower abdominal/groin pain. Abdominal/pelvic CT showed right pubic ring fracture that is nondisplaced. Patient was having a lot of pain on presentation to the ED- improved after dose of IV analgesia in the ED. Continue PRN Tylenol mild pain and PRN [place] moderate/severe pain. Confirmed with pharmacy that patient has had [place] in the past without reaction (codeine allergy listed) Orthopedics consulted reviewed the CT scans available and agree that this is a minimally displaced right pubic ring fracture that should be treated nonoperatively. Patient may weight-bear as tolerated using a walker for the next 6 weeks. Recommend some sort of assisted care environment whether it be rehab or [facility] with physical therapy capability. She should follow-up in orthopedics clinic (Dr. Griffiths) in approximately 6 weeks for radiographs of the pelvis. Vit D level 25.7 (low) - will replace PT/OT Hypovitaminosis D - vitamin D level 25 - ergocalciferol 50,000 units q. 7 days - Follow-up with PCP (3) CKD (chronic kidney disease), stage III: Creatinine 0.9 - baseline. Stable. 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 If orthopedics feel that surgical intervention is necessary, will need to discuss with Cardio. (6) Hypothyroid: Continue levothyroxine. Check TSH due to question of mild confusion upon presentation TSH 2.8 - wnl (7) DVT prophylaxis: SQ Heparin Q12h Disposition: Per PT OT evaluation Admission and Anticipated Discharge Date Admission Date: December 15, 2019 Subjective Patient is lying in bed, in no acute distress. She does have some pain with leg movement, however she is mostly complaining of some spasms in her lower extremities. She is also complaining of some constipation, said she did not have a bowel movement in past 5 days. She was given MiraLAX during lunchtime. Currently denies any fevers, chills, chest pain, shortness of breath, abdominal pain, nausea or vomiting. Evaluated by orthopedic surgery yesterday, no surgical intervention planned. PT OT pending Review of Systems Review of Systems: All systems reviewed & are unremarkable except as noted in HPI & below Constitutional: no fever and no chills Respiratory: no cough and no dyspnea Cardiovascular: no chest pain and no palpitations Gastrointestinal: no abdominal pain, no nausea and no vomiting Physical Exam Physical Exam: Constitutional: Elderly female lying in bed, in no acute distress, WD/WN, vitals as above Eyes: PERRL, conjunctivae normal, anicteric sclerae ENMT: external ear and nose normal, oropharynx normal Neck: trachea midline, no thyromegaly Respiratory: normal respiratory effort, lungs clear to auscultation Cardiovascular: Rate/Rhythm: regular rate and regular rhythm Gastrointestinal (Abdomen): Inspection/Auscultation: normal bowel sounds; abdomen not distended Percussion/Palpation: abdomen soft; abdomen nontender and no guarding Musculoskeletal: Right LE, full extension of the leg causing pain in the groin and hip. +mild discomfort on palpation of the lateral right hip. She has no pain on palpation of her right knee and range of motion is limited because of causing pain in the right hip during moving the lower extremity. Sensation is intact. Left LE is unaffected, able to move left lower extremity spontaneously without difficulty. Skin: no rashes, warm and dry Neurologic: PERRL, EOMI, accommodation nl, no face palsy, no dysarthria CN's II-XI intact bilaterally Psychiatric: A+Ox3, euthymic affect Results & Data Results & Data ([facility]) Vital Signs (Past 12 Hours) Vital Signs Pulse Resp BP Pulse Ox 12/17/19 09:57 78 18 161/77 H 96 Laboratory Results 12/17/19 12/17/19 12/17/19 Range/Units 08:33 07:22 07:22 WBC 8.91 (4.8-10.8) K/uL RBC 3.87 L (4.2-5.4) M/uL Hgb 11.3 L (12.0-16.0) g/dL Hct 34.7 L (37-47) % MCV 89.7 (80-100) fL MCH 29.2 (25-34) pg MCHC 32.6 (32-36) g/dL RDW Std Deviation 46.2 (36.4-46.3) fL RDW Coeff of Ever 14.1 (11.5-14.5) % Plt Count 154 (130-400) K/uL MPV 10.6 H (7.4-10.4) fL Sodium 134 L Cancelled Potassium 3.8 Cancelled Chloride 103 Cancelled Carbon Dioxide 25 Cancelled Anion Gap 6.0 Cancelled BUN 15 Cancelled Creatinine 0.87 Cancelled Est Cr Clr Drug Dosing 45.4 Cancelled Est GFR ( Amer) 70.9 Cancelled Est GFR (Non-Af Amer) 61.2 Cancelled BUN/Creatinine Ratio 17.1 Cancelled Glucose 82 Cancelled Calcium 8.9 Cancelled Phosphorus 2.2 L Cancelled Magnesium 2.3 Cancelled Medications Administered Current Inpatient Medications Acetaminophen (Tylenol) 650 mg PO Q4H PRN PRN Reason: Mild Pain Stop: 01/14/20 17:33 Hydrocodone Bitart/Acetaminophen ([place] 5/325) 1 tab PO Q6 PRN PRN Reason: Moderate Pain Stop: 12/29/19 17:33 Last Admin: 12/17/19 09:39 Dose: 1 tab Documented by: Amlodipine [facility] ([facility]) [facility]: 01/15/20 08:59 Last Admin: 12/17/19 08:26 Dose: 2.5 mg Documented by: Aspirin (Ecotrin Ectab) 81 mg PO HS [facility] Stop: 01/14/20 20:59 Last Admin: 12/16/19 21:02 Dose: 81 mg Documented by: Bupropion HCl (Wellbutrin-Sr) 100 mg PO QAM [facility] Stop: 01/15/20 08:59 Last Admin: 12/17/19 08:26 Dose: 100 mg Documented by: Heparin Sodium (Porcine) (Heparin Sodium (Porcine)) 5,000 units SQ Q12 [facility] Stop: 01/14/20 20:59 Last Admin: 12/17/19 09:40 Dose: 5,000 units Documented by: Isosorbide Mononitrate (Imdur Extended Rel) 60 [facility] [place] Stop: 01/15/20 08:59 Last Admin: 12/17/19 08:26 Dose: 60 mg Documented by: Levothyroxine Sodium (Synthroid) 75 mcg PO DAILYBB [facility] Stop: 01/15/20 06:29 Last Admin: 12/17/19 05:42 Dose: 75 mcg Documented by: Morphine Sulfate (Morphine Sulfate) 2 mg IV Q4H PRN PRN Reason: Pain Stop: 12/29/19 19:55 Last Admin: 12/17/19 08:29 Dose: 2 mg Documented by: Polyethylene Glycol (Miralax Powder Packet) 17 gm PO DAILY PRN PRN Reason: Constipation Stop: 01/14/20 17:33 Last Admin: 12/17/19 13:07 Dose: 17 gm Documented by: Potassium Chloride (Klor-Con M10) 10 meq PO BID [facility] Stop: 01/14/20 20:59 Last Admin: 12/17/19 08:27 Dose: 10 meq Documented by: Potassium Phosphate (Phospha 250 Neutral 155-852-130 Mg) 1 tab PO QID [facility] Stop: 01/16/20 12:59 Last Admin: 12/17/19 13:07 Dose: 1 tab Documented by: Rosuvastatin Calcium (Crestor) [facility] [place] Stop: 01/15/20 08:59 Last Admin: 12/17/19 08:27 Dose: 40 mg Documented by: Venlafaxine HCl (Effexor Extended Release) 75 mg PO [facility] Stop: 01/15/20 08:59 Last Admin: 12/17/19 08:26 Dose: 75 mg Documented by: Venlafaxine HCl (Effexor Extended Release) 150 mg PO [facility] Stop: 01/15/20 08:59 Last Admin: 12/17/19 08:27 Dose: 150 mg Documented by: Vitamin D (Vitamin D3) 1,000 units PO [facility] Stop: 01/15/20 08:59 Last Admin: 12/17/19 08:25 Dose: 1,000 units Documented by:
[2019-12-17] MEDS ORDERED: ERGOCALCIFEROL 50,000 UNITS CAP PO SCH (16:00)
[2019-12-17] MEDS: DOCUSATE SODIUM 100 MG CAP PO SCH (20:20)
[2019-12-17] MEDS: ASPIRIN 81 MG ECTAB PO SCH (20:21)
[2019-12-18] MEDS: HYDROCODONE/ACETAMOPHEN 5/325MG TAB PO PRN ×2 (01:00→13:22)
[2019-12-18] MEDS: MoRPHine SULFATE 2 MG/ML CARP IV PRN ×2 (05:36→11:51)
[2019-12-18] MEDS: LEVOTHYROXINE SODIUM 75 MCG TABLET PO SCH (05:37)
[2019-12-18 06:02] LABS: Hematocrit (blood only) 37.3 % (37-47); Hemoglobin 12.1 g/dL (12.0-16.0); Mean Corpuscular Hemoglobin 29.4 pg (25-34); Mean Corpuscular Hgb Conc 32.4 g/dL (32-36); Mean Corpuscular Volume 90.5 fL (80-100); Mean Platelet Volume 10.9 fL (7.4-10.4); Platelet Count 190 K/uL (130-400); RDW Coefficient of Variation 14.3 % (11.5-14.5); RDW Standard Deviation 47.5 fL (36.4-46.3); Red Blood Count 4.12 M/uL (4.2-5.4); White Blood Count 8.07 K/uL (4.8-10.8)
[2019-12-18 06:38] LABS: BUN Creatinine Ratio 16.9 (10-20); Calcium 8.6 mg/dl (8.5-10.1); Creatinine Clr Calc Pharmacy 51.9 ml/min; Est GFR (African American) 83.5; Magnesium 2.3 mg/dl (1.8-2.4); Phosphorus 2.2 mg/dl (2.5-4.9); Potassium 3.9 mmol/L (3.5-5.1)
[2019-12-18] MEDS: BuPROPion SR 100 MG TABCR PO SCH (08:53)
[2019-12-18] MEDS: ISOSORBIDE MONO EXTENDED REL 60 MG TABCR PO SCH (08:53)
[2019-12-18] MEDS: DOCUSATE SODIUM 100 MG CAP PO SCH (08:53)
[2019-12-18] MEDS: VENLAFAXINE HCL XR 150 MG CAPXR PO SCH (08:53)
[2019-12-18] MEDS: VENLAFAXINE HCL XR 75 MG CAPXR PO SCH (08:53)
[2019-12-18] MEDS: AMLODIPINE BESYLATE 5 MG TAB PO SCH (08:53)
[2019-12-18] MEDS: POT PHOSPHATE MONOBASIC W/ SOD TAB PO SCH ×2 (08:53→13:22)
[2019-12-18] MEDS: POTASSIUM CHLORIDE 10 MEQ TABCR PO SCH (08:54)
[2019-12-18] MEDS: ROSUVASTATIN CALCIUM 20 MG TAB PO SCH (08:54)
[2019-12-18] MEDS: HEPARIN SOD 5,000 UNIT/0.5 ML VIAL SQ SCH (08:54)
[2019-12-18] MEDS: POLYETHYLENE (MIRALAX) 17 GM PACK PO PRN (10:33)
--- NOTE | 2019-12-18 13:27 | Hospitalist Progress Note ---
Date of Service December 18, 2019 Assessment & Plan (1) Pelvic ring fracture: (2) Left groin pain: Patient with lower abdominal/groin pain. Abdominal/pelvic CT showed right pubic ring fracture that is nondisplaced. Patient was having a lot of pain on presentation to the ED- improved after dose of IV analgesia in the ED. Continue PRN Tylenol mild pain and PRN [place] moderate/severe pain. Confirmed with pharmacy that patient has had [place] in the past without reaction (codeine allergy listed) Orthopedics consulted reviewed the CT scans available and agree that this is a minimally displaced right pubic ring fracture that should be treated nonoperatively. Patient may weight-bear as tolerated using a walker for the next 6 weeks. Recommend some sort of assisted care environment whether it be rehab or care home with physical therapy capability. She should follow-up in orthopedics clinic (Dr. Griffiths) in approximately 6 weeks for radiographs of the pelvis. Vit D level 25.7 (low) - will replace PT/OT Plan to [facility] Hypovitaminosis D - vitamin D level 25 - ergocalciferol 50,000 units q. 7 days (given on 12/17/2019) - Follow-up with PCP Hypophosphatemia -Started phosphorus supplement -Recheck phosphorus level in 1 week (3) CKD (chronic kidney disease), stage III: Creatinine 0.9 - baseline. Stable. 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 (6) Hypothyroid: Continue levothyroxine. Check TSH due to question of mild confusion upon presentation TSH 2.8 - wnl (7) DVT prophylaxis: SQ Heparin Q12h Disposition: Per PT OT evaluation, plan to [facility] Admission and Anticipated Discharge Date Admission Date: December 15, 2019 Subjective Patient is lying in bed, in no acute distress. Currently denies any fevers, chills, chest pain, shortness of breath, abdominal pain, nausea or vomiting. Reports constipation, given some stool softeners yesterday, will continue. Evaluated by orthopedic surgery yesterday, no surgical intervention planned. Plan for rehab. Review of Systems Review of Systems: All systems reviewed & are unremarkable except as noted in HPI & below Constitutional: no fever and no chills Respiratory: no cough and no dyspnea Cardiovascular: no chest pain and no palpitations Gastrointestinal: + constipation; no abdominal pain, no nausea and no vomiting Physical Exam Physical Exam: Constitutional: Elderly female lying in bed, in no acute distress, WD/WN, vitals as above Eyes: PERRL, conjunctivae normal, anicteric sclerae ENMT: external ear and nose normal, oropharynx normal Neck: trachea midline, no thyromegaly Respiratory: normal respiratory effort, lungs clear to auscultation Cardiovascular: Rate/Rhythm: regular rate and regular rhythm Gastrointestinal (Abdomen): Inspection/Auscultation: normal bowel sounds; abdomen not distended Percussion/Palpation: abdomen soft; abdomen nontender and no guarding Musculoskeletal: Right LE, full extension of the leg causing pain in the groin and hip. +mild discomfort on palpation of the lateral right hip. She has no pain on palpation of her right knee and range of motion is limited because of causing pain in the right hip during moving the lower extremity. Sensation is intact. Left LE is unaffected, able to move left lower extremity spontaneously without difficulty. Skin: no rashes, warm and dry Neurologic: PERRL, EOMI, accommodation nl, no face palsy, no dysarthria CN's II-XI intact bilaterally Psychiatric: A+Ox3, euthymic affect Results & Data Results & Data ([facility]) Vital Signs (Past 12 Hours) Vital Signs Temp Pulse Resp BP Pulse Ox 12/18/19 07:14 36.8 C 73 18 165/78 H 98 Laboratory Results 12/18/19 12/18/19 Range/Units 05:27 05:27 WBC 8.07 (4.8-10.8) K/uL RBC 4.12 L (4.2-5.4) M/uL Hgb 12.1 (12.0-16.0) g/dL Hct 37.3 (37-47) % MCV 90.5 (80-100) fL MCH 29.4 (25-34) pg MCHC 32.4 (32-36) g/dL RDW Std Deviation 47.5 H (36.4-46.3) fL RDW Coeff of Ever 14.3 (11.5-14.5) % Plt Count 190 (130-400) K/uL MPV 10.9 H (7.4-10.4) fL Sodium 138 (136-145) mmol/L Potassium 3.9 (3.5-5.1) mmol/L Chloride 106 (98-107) mmol/L Carbon Dioxide 27 (21-32) mmol/L Anion Gap 5.0 (3-11) BUN 13 (7-18) mg/dl Creatinine 0.76 (0.6-1.2) mg/dl Est Cr Clr Drug Dosing 51.9 ml/min Est GFR ( Amer) 83.5 Est GFR (Non-Af Amer) 72.0 BUN/Creatinine Ratio 16.9 (10-20) Glucose 102 H (70-99) mg/dl Calcium 8.6 (8.5-10.1) mg/dl Phosphorus 2.2 L (2.5-4.9) mg/dl Magnesium 2.3 (1.8-2.4) mg/dl Medications Administered Current Inpatient Medications Acetaminophen (Tylenol) 650 mg PO Q4H PRN PRN Reason: Mild Pain Stop: 01/14/20 17:33 Hydrocodone Bitart/Acetaminophen ([place] 5/325) 1 tab PO Q6 PRN PRN Reason: Moderate Pain Stop: 12/29/19 17:33 Last Admin: 12/18/19 13:22 Dose: 1 tab Documented by: Amlodipine Besylate (Norvasc) 2.5 mg PO QAM [facility] Stop: 01/15/20 08:59 Last Admin: 12/18/19 08:53 Dose: 2.5 mg Documented by: Aspirin (Ecotrin Ectab) 81 mg PO HS [facility] Stop: 01/14/20 20:59 Last Admin: 12/17/19 20:21 Dose: 81 mg Documented by: Bupropion HCl (Wellbutrin-Sr) 100 mg PO QAM [facility] Stop: 01/15/20 08:59 Last Admin: 12/18/19 08:53 Dose: 100 mg Documented by: Docusate Sodium (Colace) 100 mg PO BID [facility] Stop: 01/16/20 20:59 Last Admin: 12/18/19 08:53 Dose: 100 mg Documented by: Ergocalciferol (Vitamin D2) 50,000 units PO Q7D@1600 [facility] Stop: 01/16/20 15:59 Last Admin: 12/17/19 17:05 Dose: 50,000 units Documented by: Heparin Sodium (Porcine) (Heparin Sodium (Porcine)) 5,000 units SQ Q12 [facility] Stop: 01/14/20 20:59 Last Admin: 12/18/19 08:54 Dose: 5,000 units Documented by: Isosorbide Mononitrate (Imdur Extended Rel) 60 mg PO QAM [facility] Stop: 01/15/20 08:59 Last Admin: 12/18/19 08:53 Dose: 60 mg Documented by: Levothyroxine Sodium (Synthroid) 75 mcg PO DAILYBB [facility] Stop: 01/15/20 06:29 Last Admin: 12/18/19 05:37 Dose: 75 mcg Documented by: Morphine Sulfate (Morphine Sulfate) 2 mg IV Q4H PRN PRN Reason: Pain Stop: 12/29/19 19:55 Last Admin: 12/18/19 11:51 Dose: 2 mg Documented by: Polyethylene Glycol (Miralax Powder Packet) 17 gm PO DAILY PRN PRN Reason: Constipation Stop: 01/14/20 17:33 Last Admin: 12/18/19 10:33 Dose: 17 gm Documented by: Potassium Chloride (Klor-Con M10) 10 meq PO BID [facility] Stop: 01/14/20 20:59 Last Admin: 12/18/19 08:54 Dose: 10 meq Documented by: Potassium Phosphate (Phospha 250 Neutral 155-852-130 Mg) 1 tab PO QID [facility] Stop: 01/16/20 12:59 Last Admin: 12/18/19 13:22 Dose: 1 tab Documented by: Rosuvastatin Calcium [facility]or) [facility]: 01/15/20 08:59 Last Admin: 12/18/19 08:54 Dose: 40 mg Documented by: Venlafaxine HCl (Effexor Extended Release) 75 mg PO QAM [facility] Stop: 01/15/20 08:59 Last Admin: 12/18/19 08:53 Dose: 75 mg Documented by: Venlafaxine HCl (Effexor Extended Release) 150 mg PO QAM [facility] Stop: 01/15/20 08:59 Last Admin: 12/18/19 08:53 Dose: 150 mg Documented by: Vitamin D (Vitamin D3) 1,000 units PO QAM [facility] Stop: 01/15/20 08:59 Last Admin: 12/17/19 08:25 Dose: 1,000 units Documented by:
--- NOTE | 2019-12-18 14:14 | Discharge Summary ---
Date of Service December 18, 2019 Admission HPI Per Admitting Provider Patient is an 84 yo female with history of hypothyroidism, HTN, dyslipidemia, CKD III, CAD s/p angioplasty w/RCA stent, depression, and arthritis who presented to the ED with complaints of left groin pain/lower abdominal pain. She states that she woke up this morning with severe "spasms" in her left lower abdomen/groin area. She had pain down both legs and into her left upper thigh. She has not had any recent falls. She does recall sitting down "really hard" on a wooden chair at home a couple days ago. She does also note that she had some pain with walking last evening in her left groin & left leg. She typically uses a walker at home. She also has a wheelchair but has a hard time moving it around, so she doesn't use it often. Upon presentation, patient had labs which are unremarkable. No anemia. UA did not show any Nitrite, leukocyte esterase or WBCs. CT of the Abd/Pelvis showed no acute intra-abdominal abnormalities, but it did note a left nondisplaced pubic ring fracture. Patient's last DEXA was 2017 which showed moderate risk for fracture but no osteoporosis. Admission Exam Per Admitting Provider Constitutional: WD/WN, vitals as above Eyes: PERRL, conjunctivae normal, anicteric sclerae ENMT: external ear and nose normal, oropharynx normal Neck: trachea midline, no thyromegaly Respiratory: normal respiratory effort, lungs clear to auscultation Cardiovascular: Rate/Rhythm: regular rate and regular rhythm Gastrointestinal (Abdomen): Inspection/Auscultation: normal bowel sounds; abdomen not distended Percussion/Palpation: abdomen soft; abdomen nontender and no guarding Musculoskeletal: Right leg appears to be slightly shorter than left while laying in bed. Uncertain if this is positional during the time of exam. Tenderness over the left groin and into the left anterior thigh. Skin: no rashes, warm and dry Neurologic: PERRL, EOMI, accommodation nl, no face palsy, no dysarthria CN's II-XI intact bilaterally Psychiatric: A+Ox3, euthymic affect Principal Diagnosis Pelvic ring fracture Hypovitaminosis D Hypophosphatemia Constipation Discharge Exam Constitutional: Elderly female lying in bed, in no acute distress, WD/WN, vitals as above Eyes: PERRL, conjunctivae normal, anicteric sclerae ENMT: external ear and nose normal, oropharynx normal Neck: trachea midline, no thyromegaly Respiratory: normal respiratory effort, lungs clear to auscultation Cardiovascular: Rate/Rhythm: regular rate and regular rhythm Gastrointestinal (Abdomen): Inspection/Auscultation: normal bowel sounds; abdomen not distended Percussion/Palpation: abdomen soft; abdomen nontender and no guarding Musculoskeletal: Right LE, full extension of the leg causing pain in the groin and hip. +mild discomfort on palpation of the lateral right hip. She has no pain on palpation of her right knee and range of motion is limited because of causing pain in the right hip during moving the lower extremity. Sensation is intact. Left LE is unaffected, able to move left lower extremity spontaneously without difficulty. Skin: no rashes, warm and dry Neurologic: PERRL, EOMI, accommodation nl, no face palsy, no dysarthria CN's II-XI intact bilaterally Psychiatric: A+Ox3, euthymic affect Discharge Data Allergies Allergy/AdvReac Type Severity Reaction Status Date / Time atorvastatin Allergy Mild "ACHING Verified 12/15/19 12:47 MUSCLES AND BONES" codeine Allergy Unknown Unknown Verified 12/15/19 12:47 Penicillins Allergy Unknown Unknown Verified 12/15/19 12:47 tetracycline Allergy Unknown Unknown Verified 12/15/19 12:47 clonazepam AdvReac Mild created Verified 12/15/19 12:47 anxiety opium tincture AdvReac Mild dizziness Verified 12/15/19 12:47 diazepam AdvReac Anxiety Verified 12/15/19 12:47 Consultations 12/15/19 15:03 ED Decision to Admit Stat 12/15/19 17:34 Consult Case Management - Discharge Planning Routine Consult Orthopedic Surgery Routine Ordered Studies 12/15/19 11:33 CT abd pelvis wo con Stat IMPRESSION: 1. Gallstones. 2. Nondisplaced fracture right pubic ring. 3. Otherwise negative study. 4. Normal bowel pattern. 12/15/19 13:49 CT head/brain wo con Stat IMPRESSION: There is no hemorrhage, mass effect, or evidence of acute territorial ischemia by CT criteria. Hospital Course (1) Pelvic ring fracture: (2) Left groin pain: Patient with lower abdominal/groin pain. Abdominal/pelvic CT showed right pubic ring fracture that is nondisplaced. Patient was having a lot of pain on presentation to the ED- improved after dose of IV analgesia in the ED. Continue PRN Tylenol mild pain and PRN [place] moderate/severe pain. Confirmed with pharmacy that patient has had [place] in the past without reaction (codeine allergy listed) Orthopedics consulted reviewed the CT scans available and agree that this is a minimally displaced right pubic ring fracture that should be treated nonoperatively. Patient may weight-bear as tolerated using a walker for the next 6 weeks. Recommend some sort of assisted care environment whether it be rehab or group home with physical therapy capability. She should follow-up in orthopedics clinic (Dr. Griffiths) in approximately 6 weeks for radiographs of the pelvis. Vit D level 25.7 (low) - will replace PT/OT Plan to [facility] Hypovitaminosis D - vitamin D level 25 - ergocalciferol 50,000 units q. 7 days (given on 12/17/2019) - Follow-up with PCP Hypophosphatemia -Started phosphorus supplement -Recheck phosphorus level in 1 week (3) CKD (chronic kidney disease), stage III: Creatinine 0.9 - baseline. Stable. 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 (6) Hypothyroid: Continue levothyroxine. Check TSH due to question of mild confusion upon presentation TSH 2.8 - wnl (7) DVT prophylaxis: SQ Heparin Q12h Disposition: Per PT OT evaluation, plan to [facility] Total Time Total Time Spent Total Time Spent (In Minutes): 35 Total Time Includes: Examination of the Patient, Discharge Planning, Medication Reconciliation and Communication With Other Providers Discharge Plan Discharge Items Patient Disposition: Transfer Inpatient Rehab Fac Reason For Visit: PELVIC FRACTURE Discharge Diagnosis: Pelvic ring fracture Hypovitaminosis D Hypophosphatemia Constipation Activity: Per Instructions section Non-emergency contact: Primary Care Provider and Surgeon Call non-emergency contact if: you have any medication questions and your symptoms worsen Follow-up/Referrals: Saul Adamson DO [Primary Care Provider] - Telma Acosta CRNP [Nurse Practitioner] - (Osteopenia/Osteporosis check up) Diet: Heart Healthy Addtl Attending Provider Instructions: For your pelvic fracture, you will need to follow-up with orthopedic surgeon in about 6 weeks. At that time radiographic images will be taken and evaluated. Your vitamin D level was low, you were started on 50,000 units of vitamin D, take this weekly. Your first dose was given yesterday, on December 16. Your phosphorus levels was also low, you were started on phosphorus supplement, take it for about a week and then have your phosphorus level checked in 1 week. For pain you can take Tylenol or for more severe pain [place] as needed, as prescribed. It was a pleasure taking care of you! Wishing you a speedy recovery. Jamie Gomez MD Pending Studies at Discharge: No Stand-Alone Forms: My [facility] Skilled Items Patient informed of condition?: Yes DNR: No Discharge Level of Care: Acute rehab Communicable Disease: No Discharge Prognosis: Stable Lines: None Urinary Catheter: Yes Medications and DC Order Prescriptions: New Phospha 250 Neutral 250 mg Tablet 1 tab PO QID 5 Days Qty: 20 RF: 0 hydrocodone-acetaminophen [[place]] 5-325 mg Tablet 1 tab PO Q6 PRN (Reason: pain) 5 Days Qty: 14 RF: 0 acetaminophen 325 mg Tablet 650 mg PO Q4H PRN (Reason: pain) 5 Days Qty: 10 RF: 0 ergocalciferol (vitamin D2) 1,250 mcg (50,000 unit) Capsule 50,000 unit PO Q7D@1600 Qty: 5 RF: 0 docusate sodium 100 mg Capsule 100 mg PO BID 5 Days Qty: 10 RF: 0 polyethylene glycol 3350 [Miralax] 17 gram Powder In Packet 17 g PO BID 5 Days Qty: 10 RF: 0 Continued venlafaxine 75 mg capsule,extended release 24hr 75 mg PO QAM RF: 0 venlafaxine 150 mg capsule,extended release 24hr 150 mg PO QAM RF: 0 amlodipine 2.5 mg tablet 2.5 mg PO QAM RF: 0 aspirin 81 mg Tablet,Delayed Release (Dr/Ec) 81 mg PO HS RF: 0 bupropion HCl 100 mg tablet sustained-release 12 hr 100 mg PO QAM RF: 0 levothyroxine 75 mcg tablet 75 mcg PO QAM RF: 0 isosorbide mononitrate 60 mg tablet extended release 24 hr 60 mg PO QAM RF: 0 nitroglycerin 0.4 mg tablet, sublingual 0.4 mg sublingual DIRECTED PRN (Reason: Chest Pain) RF: 0 rosuvastatin 40 mg tablet 40 mg PO QAM RF: 0 nystatin 100,000 unit/gram ointment 1 appln TOP BID PRN (Reason: yeast) RF: 0 potassium chloride 10 mEq tablet,ER particles/crystals 10 meq PO BID RF: 0 Discharge Orders: Discharge Order (Routine); Ordered 12/18/19 Ordered By: Alexander Gomez Admission Data Admit Date/Time: 12/15/19 14:54 Attending Provider: Alexander Gomez Admit Provider: Robby Reid Primary Care Provider: Saul Adamson Other Providers: Robby Reid ; Jason Griffiths ; [facility]
[2019-12-18] MEDS ORDERED: POLYETHYLENE (MIRALAX) 17 GM PACK PO SCH (21:00)
== END 2019-12-18 18:00 | DRG 536 ==
LOC: ED 10:55 → SUATTDRO 14:54 → 3E 14:54 → 3N 12-16 07:12

== ENCOUNTER 2023-03-05 00:39 | Observation (INO) ==
[2023-03-05] MEDS ORDERED: SODIUM CHLORIDE 0.9% 1,000 ML IV SCH (01:00)
[2023-03-05 01:30] LABS: iSTAT Hemoglobin 15.3 g/dl (12.0-16.0); iSTAT Ionized Calcium 1.15 mmol/l (1.12-1.32); iSTAT Potassium 4.5 mmol/L (3.3-5.0)
--- NOTE | 2023-03-05 01:32 | Emergency Department Note ---
Impression & Plan Witnessed seizure-like activity, Tongue biting, Elevated lactic acid level, Elevated troponin, Acute UTI ED Provider Note NAME: ABRAHAM GONZALEZ AGE: 87 SEX: F ARRIVES VIA: Ambulance INFORMANT: Patient ED PROVIDER(S): Daquan Fallon MD CHIEF COMPLAINT: Seizure PLAN: Disposition: Admit MEDICAL DECISION MAKING: The patient is a pleasant 87-year-old woman with a past medical history of hypertension, hyperlipidemia, hypothyroidism, anxiety, CKD, CAD, history of an gioplasty with RCA stent, arthritis, dementia, history of SDH in 2019, ambulatory dysfunction who presents to the emergency department from her residential facility at [facility] where it was reported that the patient had witnessed seizure-like activity for approximately 10 minutes that began around 2315 where they described the penchant clenching her jaw and having tremors and experienced tongue biting. Upon recovery she had some garbled speech and confusion. Patient has no prior history of seizures per her report. There is no report of any recent illness. On arrival emergency department the patient is" no acute distress, afebrile stable vital signs. The patient is alert to self and place. She has poor recollection of the events that occurred prior to her transport. She reports feeling exhausted. WBC, H/H and platelets within normal limits. Chemistry without metabolic ac idosis. Initial lactic acid 3.9 with repeat improving to 2.5 following IV fluid hydration. High-sensitivity troponin initially 19.2, nonspecific. Procalcitonin is not elevated. Prolactin is not elevated. UA is suspicious for infection with positive nitrites, WBCs and 4+ bacteria. Blood cultures had been obtained and patient was treated empirically with ceftriaxone. COVID-19 RNA, NORRIS test was negative. CT of the head and CT of the head neck were performed and were negative for ischemia, ICH or severe narrowing occlusion of large vessels. CT of the abdomen pelvis was negative for acute abnormalities. Case was discussed with Dr. Loera, [facility] hospitalist, who will evaluate the patient for admission. Triage Nursing notes reviewed and agree them. Prior/outside medical records reviewed Vital Signs: reviewed Differential diagnosis: Epilepsy, infection, hypoglycemia, electrolyte abnormalities, cardiac sources, intracerebral event, trauma, toxicologic, neurologic, syncope, as well as other pathologies. ER treatment provided: See below. Diagnostics interpreted by me: ECG: Sinus rhythm, 80 bpm, PACs, incomplete right bundle branch block, no overt ST elevation or depression Cardiac Monitoring: An order for continuous cardiac monitoring was placed and demonstrated sinus rhythm, 80 bpm, PACs. Laboratory studies: See below Imaging studies: See below Consultation(s): Dr. Loera, [facility] hospitalist. HPI: The patient is a pleasant 87-year-old woman with a past medical history of hypertension, hyperlipidemia, hypothyroidism, anxiety, CKD, CAD, history of angioplasty with RCA stent, arthritis, dementia, history of SDH in 2019, ambulatory dysfunction who presents to the emergency department from her residential facility at [facility] where it was reported that the patient had witnessed seizure-like activity for approximately 10 minutes that began around 2315 where they described the penchant clenching her jaw and having tremors and experienced tongue biting. Upon recovery she had some garbled speech and confusion. Patient has no prior history of seizures per her report. There is no report of any recent illness. ROS: See above HPI for pertinent positives & negatives. A total of 10 systems reviewed and were otherwise negative. VITALS:See Below PHYSICAL EXAMINATION: GENERAL: Awake, alert, fatigued/chronically ill-appearing, in no distress BMI 31.3 HENT: Normocephalic, atraumatic. Oropharynx dry mucous membranes EYES: Normal conjunctiva. Sclera non-icteric. NECK: Supple. No nuchal rigidity. FROM. No JVD. RESPIRATORY: Clear to auscultation. CARDIAC: Regular rate, normal rhythm. Extremities warm and well perfused. Pulses equal. ABDOMEN: Soft, non-distended. No tenderness to palpation. No rebound or guarding. No masses. RECTAL: Deferred. MUSCULOSKELETAL: Chest examination reveals no tenderness. The back is symmetrical on inspection without obvious abnormality. There is no CVA tenderness to palpation. No joint edema. LOWER EXTREMITIES: Calves are equal size bilaterally and non-tender. No edema. No discoloration. NEURO: Alert to self and place. Confused to situation. Normal strength of bilateral upper extremities. 3/5 strength of bilateral lower extremities suspected to be baseline. SKIN: No rash or jaundice noted. 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 Breast cancer CAD (coronary artery disease) CKD (chronic kidney disease), stage III CKD (chronic kidney disease), stage III Depression Depression Dyslipidemia Dyslipidemia Heart disease Hypothyroid Hypothyroidism Osteoarthritis Vitamin D deficiency Surgical History H/O partial mastectomy H/O vein stripping History of appendectomy History of cardiac catheterization History of left heart catheterization History of lumpectomy of left breast History of partial mastectomy History of tonsillectomy History of vein stripping Hx of appendectomy Hx of tonsillectomy S/P coronary artery stent placement Family History Mother Cancer Hodgkins Father Heart disease Diabetes Stroke Hypertension Son Myocardial infarction Other Family history non-contributory No pertinent family history Social History Smoking Status: Unknown if ever smoked Tobacco Type: Cigarettes Hx Alcohol Use: No Hx Substance Use: No Preferred Language: Amharic Communication Ability: Effective Hearing Ability: Hard of Hearing Highway Painter Required: No Beliefs That Will Affect Care: None marital status: / Current Living Situation: Alone current occupational status: retired Feels Safe at Home: Yes Assistive Devices: Walker Allergies Allergies Allergy/AdvReac Type Severity Reaction Status Date / Time atorvastatin Allergy Mild "ACHING Verified 03/05/23 06:38 MUSCLES AND BONES" codeine Allergy Unknown Unknown Verified 03/05/23 06:38 Penicillins Allergy Unknown Unknown Verified 03/05/23 06:38 tetracycline Allergy Unknown Unknown Verified 03/05/23 06:38 Tetracyclines Allergy Unknown Verified 03/05/23 06:38 clonazepam AdvReac Mild created Verified 03/05/23 06:38 anxiety opium tincture AdvReac Mild dizziness Verified 03/05/23 06:38 diazepam AdvReac Anxiety Verified 03/05/23 06:38 clonazepam Allergy Unknown Uncoded 03/05/23 06:38 Home Meds Home Medications Medication Instructions Recorded Confirmed amlodipine 2.5 mg tablet 2.5 mg PO QAM 03/05/19 03/05/23 aspirin 81 mg tablet,delayed 81 mg PO QAM 03/05/19 03/05/23 release cholecalciferol (vitamin D3) 50 50 mcg PO QAM 02/18/20 03/05/23 mcg (2,000 unit) tablet (Vitamin D3) potassium chloride 20 mEq 20 meq PO QAM 02/18/20 03/05/23 tablet,extended release potassium, sodium phosphates 280 1 packet PO TID 02/18/20 03/05/23 mg-160 mg-250 mg oral powder packet (Phos-NaK) docusate sodium 100 mg capsule 200 mg PO BID 06/09/22 03/05/23 acetaminophen 325 mg tablet 650 mg PO BID PRN pain or fever 03/05/23 03/05/23 acetaminophen 325 mg tablet 650 mg PO Q12H 03/05/23 03/05/23 acetaminophen 325 mg tablet 650 mg PO Q6H PRN Fever Or Pain 03/05/23 03/05/23 (Tylenol) amlodipine 2.5 mg tablet 2.5 mg PO DAILY 03/05/23 03/05/23 aspirin 81 mg chewable tablet 81 mg PO DAILY 03/05/23 03/05/23 bisacodyl 10 mg rectal suppository 10 mg NE DAILY PRN Constipation 03/05/23 03/05/23 (Dulcolax (bisacodyl)) bupropion HCl 300 mg 24 hr tablet, 300 mg PO QAM 03/05/23 03/05/23 extended release (Wellbutrin XL) bupropion HCl 300 mg 24 hr tablet, 300 mg PO QAM 03/05/23 03/05/23 extended release (Wellbutrin XL) carboxymethylcellulose 0.5 1 drp OPB QID 03/05/23 03/05/23 %-glycerin 0.9 % eye drops (Refresh Optive) cholecalciferol (vitamin D3) 50 50 mcg PO DAILY 03/05/23 03/05/23 mcg (2,000 unit) tablet cranberry conc-vit 30 ea PO QAM 03/05/23 03/05/23 P-piqxeux-ISW-bromelain 3,875 mg/30 mL oral liquid (UTI-Stat) docusate sodium 100 mg capsule 100 mg PO BID 03/05/23 03/05/23 levothyroxine 100 mcg tablet 100 mcg PO DAILY 03/05/23 03/05/23 levothyroxine 100 mcg tablet 100 mcg PO DAILYBB 03/05/23 03/05/23 potassium chloride 10 mEq 20 meq PO DAILY 03/05/23 03/05/23 tablet,extended release potassium, sodium phosphates 280 1 packet PO TID PRN 03/05/23 03/05/23 mg-160 mg-250 mg oral powder hypophosphatemia packet (Phos-NaK) sennosides 8.6 mg tablet (senna) 17.2 mg PO BID 03/05/23 03/05/23 sennosides 8.6 mg tablet (senna) 17.2 mg PO BID 03/05/23 03/05/23 tobramycin 0.3 % eye drops 2 drp OPB QID 03/05/23 03/05/23 tobramycin 0.3 % eye drops 2 drp ophthalmic (eye) Q4H 03/05/23 03/05/23 venlafaxine 112.5 mg PO BID 03/05/23 03/05/23 venlafaxine 37.5 mg tablet 112.5 mg PO BID 03/05/23 03/05/23 vibegron 75 mg tablet (Gemtesa) 75 mg PO DAILY 03/05/23 03/05/23 vibegron 75 mg tablet (Gemtesa) 75 mg PO QAM 03/05/23 03/05/23 Results & Data (ED) Vital Signs Vital Signs - 24 hr 03/05/23 00:46 03/05/23 01:08 03/05/23 01:16 Temperature 37.0 C Temperature Source Axillary Pulse Rate 74 Pulse Rate [Apical] 80 Pulse Rate from SpO2 Sensor Pulse Rhythm Regular Pulse Rhythm [Apical] Regular Pulse Strength Normal Pulse Strength [Apical] Normal Respiratory Rate 23 21 Respiratory Effort / Characteristics Non-Labored Non-Labored Respiratory Depth Normal Normal Respiratory Pattern Regular Regular Blood Pressure 133/60 Blood Pressure [Right Arm] 125/77 Blood Pressure Mean 84 Blood Pressure Mean [Right Arm] 93 Blood Pressure Position Sitting Blood Pressure Position [Right Arm] Sitting Pulse Oximetry 90 94 94 Oxygen Delivery Method Room Air Nasal Cannula Nasal Cannula Oxygen Flow Rate 2 2 Sepsis Recent Fever Within 48 Hours No Sepsis New/Unexplained Change in Mental Status Yes Sepsis Action Taken by Nursing Physician Notified 03/05/23 01:02 03/05/23 01:02 03/05/23 01:30 Temperature Temperature Source Pulse Rate 72 70 77 Pulse Rate [Apical] Pulse Rate from SpO2 Sensor 71 77 Pulse Rhythm Pulse Rhythm [Apical] Pulse Strength Pulse Strength [Apical] Respiratory Rate 18 26 H Respiratory Effort / Characteristics Respiratory Depth Respiratory Pattern Blood Pressure 125/93 Blood Pressure [Right Arm] Blood Pressure Mean 103 Blood Pressure Mean [Right Arm] Blood Pressure Position Blood Pressure Position [Right Arm] Pulse Oximetry 87 L 94 Oxygen Delivery Method Room Air Nasal Cannula Oxygen Flow Rate 2 Sepsis Recent Fever Within 48 Hours Sepsis New/Unexplained Change in Mental Status Sepsis Action Taken by Nursing 03/05/23 02:00 03/05/23 02:30 03/05/23 03:00 Temperature Temperature Source Pulse Rate 81 79 81 Pulse Rate [Apical] Pulse Rate from SpO2 Sensor 69 79 Pulse Rhythm Pulse Rhythm [Apical] Pulse Strength Pulse Strength [Apical] Respiratory Rate 16 14 15 Respiratory Effort / Characteristics Respiratory Depth Respiratory Pattern Blood Pressure 117/82 135/81 137/87 Blood Pressure [Right Arm] Blood Pressure Mean 93 99 103 Blood Pressure Mean [Right Arm] Blood Pressure Position Blood Pressure Position [Right Arm] Pulse Oximetry 95 97 95 Oxygen Delivery Method Nasal Cannula Nasal Cannula Nasal Cannula Oxygen Flow Rate 2 2 2 Sepsis Recent Fever Within 48 Hours Sepsis New/Unexplained Change in Mental Status Sepsis Action Taken by Nursing 03/05/23 04:01 03/05/23 05:01 Temperature Temperature Source Pulse Rate 78 79 Pulse Rate [Apical] Pulse Rate from SpO2 Sensor 79 Pulse Rhythm Pulse Rhythm [Apical] Pulse Strength Pulse Strength [Apical] Respiratory Rate 16 20 Respiratory Effort / Characteristics Respiratory Depth Respiratory Pattern Blood Pressure 104/86 151/96 H Blood Pressure [Right Arm] Blood Pressure Mean 92 114 Blood Pressure Mean [Right Arm] Blood Pressure Position Blood Pressure Position [Right Arm] Pulse Oximetry 97 94 Oxygen Delivery Method Room Air Room Air Oxygen Flow Rate Sepsis Recent Fever Within 48 Hours Sepsis New/Unexplained Change in Mental Status Sepsis Action Taken by Nursing Laboratory Data 03/05/23 01:10 03/05/23 01:10 Lab Results 03/05/23 03/05/23 03/05/23 Range/Units 01:10 01:10 01:10 WBC 6.28 (4.8-10.8) K/ul RBC 4.84 (4.20-5.40) M/uL Hgb 15.0 (12.0-16.0) g/dl POC Hgb (12.0-16.0) g/dl Hct 44.7 (37.0-47.0) % POC Hct (37-47) % MCV 92.4 (80.0-100.0) fL MCH 31.0 (25.0-34.0) pg MCHC 33.6 (32.0-36.0) g/dL RDW Std Deviation 46.2 (36.4-46.3) fL RDW Coeff of Ever 13.4 (11.5-14.5) % Plt Count 238 (130-400) K/uL MPV 10.7 (9.4-12.4) fL Immature Gran % (Auto) 0.6 % Neut % (Auto) 71.0 % Lymph % (Auto) 18.6 % [place] % (Auto) 6.1 % Eos % (Auto) 2.9 % Baso % (Auto) 0.8 % Neut # (Auto) 4.46 (1.40-6.50) K/uL Lymph # (Auto) 1.17 L (1.20-3.40) K/uL [place] # (Auto) 0.38 (0.11-0.59) K/uL Eos # (Auto) 0.18 (0.00-0.50) K/uL Baso # (Auto) 0.05 (0.00-0.20) K/uL Immature Gran # (Auto) 0.04 (0.01-0.20) K/uL PT (9.0-12.0) Seconds INR (0.9-1.1) VBG pH (7.36-7.41) VBG pCO2 (38-50) mmHg VBG pO2 mmHg VBG HCO3 mmol/L VBG O2 Saturation % VBG Base Excess mEq/L POC Sodium (135-144) mmol/L Sodium 134 L (136-145) mmol/L POC Potassium (3.3-5.0) mmol/L Potassium 4.5 (3.5-5.1) mmol/L POC Chloride (101-112) mmol/L Chloride 102 (98-107) mmol/L Carbon Dioxide 21 (21-32) mmol/L POC Total CO2 (24-31) mmol/L Anion Gap 11 (3-11) POC Anion Gap (16-25) mmol/L POC BUN (7-18) mg/dl BUN 17 (6-23) mg/dl Creatinine 1.07 (0.6-1.2) mg/dl POC Creatinine (0.6-1.3) mg/dl Est Cr Clr Drug Dosing 39.9 ml/min Est GFR ( Amer) 54.1 ml/min Est GFR (Non-Af Amer) 46.6 ml/min BUN/Creatinine Ratio 15.9 (10-20) Glucose 117 H (70-99(Fasting)) mg/dl POC Glucose (other) (70-99) mg/dl Lactate (0.4-2.0) mmol/L Calcium 9.6 (8.6-10.3) mg/dl POC Ioniz Calcium Ministerio (1.12-1.32) mmol/l Magnesium 2.2 (1.7-2.4) mg/dl Total Bilirubin 0.6 (0.2-1.0) mg/dl Direct Bilirubin 0.1 (0-0.2) mg/dl AST 14 (13-39) U/L ALT 17 (7-52) U/L Alkaline Phosphatase 65 (34-104) U/L Troponin I High Sens (0-14) pg/ml Total Protein 6.8 (6.0-8.3) gm/dl Albumin 4.1 (3.4-5.0) gm/dl Procalcitonin < 0.05 (0-0.5) ng/ml Prolactin ng/ml Urine Color Urine Appearance (Clear) Urine pH (4.5-7.5) Ur Specific [place] (1.000-1.030) Urine Protein (Negative) Urine Glucose (UA) (Negative) Urine Ketones (Negative) Urine Blood (Negative) Urine Nitrite (Negative) Urine Bilirubin (Negative) Urine Urobilinogen (Negative) Ur Leukocyte Esterase (Negative) Urine WBC (Auto) (0-5) /hpf Urine RBC (Auto) (0-4) /hpf U Hyaline Cast (Auto) (0-5) /lpf U Epithel Cells (Auto) (0-5) /lpf Urine Bacteria (Auto) (Negative) SARS-CoV-2, RNA, NAAT (NEGATIVE) 03/05/23 03/05/23 03/05/23 Range/Units 01:10 01:10 01:10 WBC (4.8-10.8) K/ul RBC (4.20-5.40) M/uL Hgb (12.0-16.0) g/dl POC Hgb (12.0-16.0) g/dl Hct (37.0-47.0) % POC Hct (37-47) % MCV (80.0-100.0) fL MCH (25.0-34.0) pg MCHC (32.0-36.0) g/dL RDW Std Deviation (36.4-46.3) fL RDW Coeff of Ever (11.5-14.5) % Plt Count (130-400) K/uL MPV (9.4-12.4) fL Immature Gran % (Auto) % Neut % (Auto) % Lymph % (Auto) % [place] % (Auto) % Eos % (Auto) % Baso % (Auto) % Neut # (Auto) (1.40-6.50) K/uL Lymph # (Auto) (1.20-3.40) K/uL [place] # (Auto) (0.11-0.59) K/uL Eos # (Auto) (0.00-0.50) K/uL Baso # (Auto) (0.00-0.20) K/uL Immature Gran # (Auto) (0.01-0.20) K/uL PT 10.8 (9.0-12.0) Seconds INR 1.0 (0.9-1.1) VBG pH (7.36-7.41) VBG pCO2 (38-50) mmHg VBG pO2 mmHg VBG HCO3 mmol/L VBG O2 Saturation % VBG Base Excess mEq/L POC Sodium (135-144) mmol/L Sodium (136-145) mmol/L POC Potassium (3.3-5.0) mmol/L Potassium (3.5-5.1) mmol/L POC Chloride (101-112) mmol/L Chloride (98-107) mmol/L Carbon Dioxide (21-32) mmol/L POC Total CO2 (24-31) mmol/L Anion Gap (3-11) POC Anion Gap (16-25) mmol/L POC BUN (7-18) mg/dl BUN (6-23) mg/dl Creatinine (0.6-1.2) mg/dl POC Creatinine (0.6-1.3) mg/dl Est Cr Clr Drug Dosing ml/min Est GFR ( Amer) ml/min Est GFR (Non-Af Amer) ml/min BUN/Creatinine Ratio (10-20) Glucose (70-99(Fasting)) mg/dl POC Glucose (other) (70-99) mg/dl Lactate (0.4-2.0) mmol/L Calcium (8.6-10.3) mg/dl POC Ioniz Calcium Ministerio (1.12-1.32) mmol/l Magnesium (1.7-2.4) mg/dl Total Bilirubin (0.2-1.0) mg/dl Direct Bilirubin (0-0.2) mg/dl AST (13-39) U/L ALT (7-52) U/L Alkaline Phosphatase (34-104) U/L Troponin I High Sens 19.2 H (0-14) pg/ml Total Protein (6.0-8.3) gm/dl Albumin (3.4-5.0) gm/dl Procalcitonin (0-0.5) ng/ml Prolactin 19.67 ng/ml Urine Color Urine Appearance (Clear) Urine pH (4.5-7.5) Ur Specific [place] (1.000-1.030) Urine Protein (Negative) Urine Glucose (UA) (Negative) Urine Ketones (Negative) Urine Blood (Negative) Urine Nitrite (Negative) Urine Bilirubin (Negative) Urine Urobilinogen (Negative) Ur Leukocyte Esterase (Negative) Urine WBC (Auto) (0-5) /hpf Urine RBC (Auto) (0-4) /hpf U Hyaline Cast (Auto) (0-5) /lpf U Epithel Cells (Auto) (0-5) /lpf Urine Bacteria (Auto) (Negative) SARS-CoV-2, RNA, NAAT (NEGATIVE) 03/05/23 03/05/23 03/05/23 Range/Units 01:18 01:31 02:57 WBC (4.8-10.8) K/ul RBC (4.20-5.40) M/uL Hgb (12.0-16.0) g/dl POC Hgb 15.3 (12.0-16.0) g/dl Hct (37.0-47.0) % POC Hct 45 (37-47) % MCV (80.0-100.0) fL MCH (25.0-34.0) pg MCHC (32.0-36.0) g/dL RDW Std Deviation (36.4-46.3) fL RDW Coeff of Ever (11.5-14.5) % Plt Count (130-400) K/uL MPV (9.4-12.4) fL Immature Gran % (Auto) % Neut % (Auto) % Lymph % (Auto) % [place] % (Auto) % Eos % (Auto) % Baso % (Auto) % Neut # (Auto) (1.40-6.50) K/uL Lymph # (Auto) (1.20-3.40) K/uL [place] # (Auto) (0.11-0.59) K/uL Eos # (Auto) (0.00-0.50) K/uL Baso # (Auto) (0.00-0.20) K/uL Immature Gran # (Auto) (0.01-0.20) K/uL PT (9.0-12.0) Seconds INR (0.9-1.1) VBG pH 7.36 (7.36-7.41) VBG pCO2 46 (38-50) mmHg VBG pO2 31 mmHg VBG HCO3 26 mmol/L VBG O2 Saturation < 60.0 % VBG Base Excess 0.1 mEq/L POC Sodium 136 (135-144) mmol/L Sodium (136-145) mmol/L POC Potassium 4.5 (3.3-5.0) mmol/L Potassium (3.5-5.1) mmol/L POC Chloride 103 (101-112) mmol/L Chloride (98-107) mmol/L Carbon Dioxide (21-32) mmol/L POC Total CO2 20 L (24-31) mmol/L Anion Gap (3-11) POC Anion Gap 19.0 (16-25) mmol/L POC BUN 15 (7-18) mg/dl BUN (6-23) mg/dl Creatinine (0.6-1.2) mg/dl POC Creatinine 1.0 (0.6-1.3) mg/dl Est Cr Clr Drug Dosing ml/min Est GFR ( Amer) ml/min Est GFR (Non-Af Amer) ml/min BUN/Creatinine Ratio (10-20) Glucose (70-99(Fasting)) mg/dl POC Glucose (other) 117 H (70-99) mg/dl Lactate 3.9 H* (0.4-2.0) mmol/L Calcium (8.6-10.3) mg/dl POC Ioniz Calcium Ministerio 1.15 (1.12-1.32) mmol/l Magnesium (1.7-2.4) mg/dl Total Bilirubin (0.2-1.0) mg/dl Direct Bilirubin (0-0.2) mg/dl AST (13-39) U/L ALT (7-52) U/L Alkaline Phosphatase (34-104) U/L Troponin I High Sens (0-14) pg/ml Total Protein (6.0-8.3) gm/dl Albumin (3.4-5.0) gm/dl Procalcitonin (0-0.5) ng/ml Prolactin ng/ml Urine Color Urine Appearance (Clear) Urine pH (4.5-7.5) Ur Specific [place] (1.000-1.030) Urine Protein (Negative) Urine Glucose (UA) (Negative) Urine Ketones (Negative) Urine Blood (Negative) Urine Nitrite (Negative) Urine Bilirubin (Negative) Urine Urobilinogen (Negative) Ur Leukocyte Esterase (Negative) Urine WBC (Auto) (0-5) /hpf Urine RBC (Auto) (0-4) /hpf U Hyaline Cast (Auto) (0-5) /lpf U Epithel Cells (Auto) (0-5) /lpf Urine Bacteria (Auto) (Negative) SARS-CoV-2, RNA, NAAT (NEGATIVE) 03/05/23 03/05/23 03/05/23 Range/Units 03:15 04:16 05:05 WBC (4.8-10.8) K/ul RBC (4.20-5.40) M/uL Hgb (12.0-16.0) g/dl POC Hgb (12.0-16.0) g/dl Hct (37.0-47.0) % POC Hct (37-47) % MCV (80.0-100.0) fL MCH (25.0-34.0) pg MCHC (32.0-36.0) g/dL RDW Std Deviation (36.4-46.3) fL RDW Coeff of Ever (11.5-14.5) % Plt Count (130-400) K/uL MPV (9.4-12.4) fL Immature Gran % (Auto) % Neut % (Auto) % Lymph % (Auto) % [place] % (Auto) % Eos % (Auto) % Baso % (Auto) % Neut # (Auto) (1.40-6.50) K/uL Lymph # (Auto) (1.20-3.40) K/uL [place] # (Auto) (0.11-0.59) K/uL Eos # (Auto) (0.00-0.50) K/uL Baso # (Auto) (0.00-0.20) K/uL Immature Gran # (Auto) (0.01-0.20) K/uL PT (9.0-12.0) Seconds INR (0.9-1.1) VBG pH (7.36-7.41) VBG pCO2 (38-50) mmHg VBG pO2 mmHg VBG HCO3 mmol/L VBG O2 Saturation % VBG Base Excess mEq/L POC Sodium (135-144) mmol/L Sodium (136-145) mmol/L POC Potassium (3.3-5.0) mmol/L Potassium (3.5-5.1) mmol/L POC Chloride (101-112) mmol/L Chloride (98-107) mmol/L Carbon Dioxide (21-32) mmol/L POC Total CO2 (24-31) mmol/L Anion Gap (3-11) POC Anion Gap (16-25) mmol/L POC BUN (7-18) mg/dl BUN (6-23) mg/dl Creatinine (0.6-1.2) mg/dl POC Creatinine (0.6-1.3) mg/dl Est Cr Clr Drug Dosing ml/min Est GFR ( Amer) ml/min Est GFR (Non-Af Amer) ml/min BUN/Creatinine Ratio (10-20) Glucose (70-99(Fasting)) mg/dl POC Glucose (other) (70-99) mg/dl Lactate 2.5 H* (0.4-2.0) mmol/L Calcium (8.6-10.3) mg/dl POC Ioniz Calcium Ministerio (1.12-1.32) mmol/l Magnesium (1.7-2.4) mg/dl Total Bilirubin (0.2-1.0) mg/dl Direct Bilirubin (0-0.2) mg/dl AST (13-39) U/L ALT (7-52) U/L Alkaline Phosphatase (34-104) U/L Troponin I High Sens (0-14) pg/ml Total Protein (6.0-8.3) gm/dl Albumin (3.4-5.0) gm/dl Procalcitonin (0-0.5) ng/ml Prolactin ng/ml Urine Color Yellow Urine Appearance Turbid A (Clear) Urine pH 6.5 (4.5-7.5) Ur Specific [place] 1.039 H (1.000-1.030) Urine Protein Negative (Negative) Urine Glucose (UA) Negative (Negative) Urine Ketones Negative (Negative) Urine Blood 1+ H (Negative) Urine Nitrite Positive A (Negative) Urine Bilirubin Negative (Negative) Urine Urobilinogen Negative (Negative) Ur Leukocyte Esterase 3+ H (Negative) Urine WBC (Auto) >30 H (0-5) /hpf Urine RBC (Auto) 0-4 (0-4) /hpf U Hyaline Cast (Auto) 1-5 (0-5) /lpf U Epithel Cells (Auto) 10-20 H (0-5) /lpf Urine Bacteria (Auto) 4+ H (Negative) SARS-CoV-2, RNA, NAAT NEGATIVE (NEGATIVE) Administered Medications Amlodipine Besylate (Amlodipine Besylate 5 Mg Tab) 2.5 mg PO DAILY [facility] Stop: 04/04/23 08:59 Last Admin: 03/05/23 08:35 Dose: 2.5 mg Documented By: LUZ Aspirin (Aspirin 81 Mg Chew) 81 mg PO DAILY [facility] Stop: 04/04/23 08:59 Last Admin: 03/05/23 08:36 Dose: 81 mg Documented By: LUZ Bupropion HCl (Bupropion Xl 300 Mg Tabcr) 300 mg PO QAM [facility] Stop: 04/04/23 08:59 Last Admin: 03/05/23 08:35 Dose: 300 mg Documented By: LUZ Docusate Sodium (Docusate Sodium 100 Mg Cap) 100 mg PO BID [facility] Stop: 04/04/23 08:59 Last Admin: 03/05/23 08:36 Dose: 100 mg Documented By: LUZ Sennosides (Senna 8.6 Mg Tab) 17.2 mg PO BID [facility] Stop: 04/04/23 08:59 Last Admin: 03/05/23 08:34 Dose: 17.2 mg Documented By: LUZ Tobramycin Sulfate (Tobramycin Sulf 0.3% Op Soln 5 Ml Btl) 2 drops OP Q4H [facility] Stop: 03/09/23 06:20 Last Admin: 03/05/23 08:33 Dose: 2 drops Documented By: LUZ Venlafaxine HCl (Venlafaxine Hcl 37.5 Mg Tab) 112.5 mg PO BID [facility] Stop: 04/04/23 08:59 Last Admin: 03/05/23 08:35 Dose: 112.5 mg Documented By: LUZ Vibegron (Vibegron 75 Mg Tab) 75 mg PO DAILY [facility] Stop: 04/04/23 08:59 Last Admin: 03/05/23 08:35 Dose: 75 mg Documented By: LUZ Discontinued Medications Sodium Chloride (Nss) 1,000 mls @ 999 mls/hr IV .Q1H1M [facility] Stop: 03/05/23 02:00 Last Infusion: 03/05/23 02:57 Dose: 0 mls/hr Documented By: Admin: 03/05/23 01:35 Dose: 999 mls/hr Documented By: KIKI Ceftriaxone Sodium (Rocephin) 2,000 mg in 70 mls @ 140 mls/hr IV NOW STA Stop: 03/05/23 05:21 Last Infusion: 03/05/23 05:40 Dose: 0 mls/hr Documented By: Admin: 03/05/23 05:00 Dose: 140 mls/hr Documented By: VIDA Ioversol (Ioversol 350 Mg 125ml Prefilled Syringe) 120 ml IV ONCE ONE Stop: 03/05/23 03:52 Last Admin: 03/05/23 03:51 Dose: 120 ml Documented By: MARISOL Imaging Data Radiologist's Impression: Chest X-Ray 03/05/23 00:54 XR chest 1V portable CLINICAL HISTORY: Sepsis TECHNIQUE: Single frontal radiograph of the chest was obtained. Comparison: Comparison is made to chest CT 02/18/2020 FINDINGS: No lines and tubes are seen. The cardiomediastinal silhouette is normal. Lungs are underinflated but clear. No evidence of pleural effusion or pneumothorax. IMPRESSION: Exam is limited by underinflation. No evidence of pneumonia is seen. ACT 112: Negative or not required by law. Electronically signed by: Yvan Marie M.D. 03/05/2023 6:[address] 03/05/23 01:57 Exam(s): CT HEAD Without Contrast EXAM: CT Head Without Intravenous Contrast CLINICAL HISTORY: Reason for exam: ams, ?sz. TECHNIQUE: Axial computed tomography images of the head/brain without intravenous contrast. CTDI is 37.87 mGy and DLP is 624.41 mGy-cm. Automated exposure control was utilized for the study. A dose lowering technique was utilized adhering to the principles of ALARA. COMPARISON: No relevant prior studies available. FINDINGS: Moderate motion degradation at the vertex. Within this constraint: There is no acute intracranial hemorrhage or major vascular territory infarct. No mass effect or midline shift seen. There is prominence of the ventricles and sulci consistent with generalized parenchymal volume loss. Scattered hypodensities throughout the periventricular and subcortical white matter are noted, likely sequela of chronic microvascular changes. The calvarium is intact. No acute findings in the orbits. The visualized paranasal sinuses and mastoid air cells are clear. IMPRESSION: Moderate motion degradation at the vertex. Within this constraint: No acute intracranial pathology. Generalized parenchymal volume loss and sequela of chronic microvascular ischemic angiopathy. Electronically signed by: Elvis Johnson M.D. 03/05/23 05:11 AM Head CTA 03/05/23 01:57 Exam(s): CTA HEAD With Contrast IV Amt: 120 ml opti 350 EXAM: CT Angiography Head With Intravenous Contrast CLINICAL HISTORY: Reason for exam: ams, ?sz. TECHNIQUE: Axial computed tomographic angiography images of the head with intravenous contrast. CTDI is 37.87 mGy and DLP is 624.41 mGy-cm. Automated exposure control was utilized for the study. A dose lowering technique was utilized adhering to the principles of ALARA. MIP reconstructed images were created and reviewed. CONTRAST: Patient received 120 ml opti 350 of IV contrast COMPARISON: Concurrent CT head FINDINGS: Right internal carotid artery: Atherosclerosis in the carotid siphon with mild stenosis. No aneurysm. Right anterior cerebral artery: No occlusion or significant stenosis. No aneurysm. Right middle cerebral artery: No occlusion or significant stenosis. No aneurysm. Right posterior cerebral artery: No occlusion or significant stenosis. No aneurysm. Right vertebral artery: Unremarkable as visualized. Left internal carotid artery: Atherosclerosis in the carotid siphon with mild stenosis. No aneurysm. Left anterior cerebral artery: No occlusion or significant stenosis. No aneurysm. Left middle cerebral artery: No occlusion or significant stenosis. No aneurysm. Left posterior cerebral artery: Normal variant origin. No occlusion or significant stenosis. No aneurysm. Left vertebral artery: Trace atherosclerosis, no occlusion.. Basilar artery: No occlusion or significant stenosis. No aneurysm. IMPRESSION: No large vessel occlusion, significant stenosis, aneurysm or vascular malformation. Electronically signed by: Elvis Johnson M.D. 03/05/23 05:15 AM Neck CTA 03/05/23 01:57 Exam(s): CTA NECK With Contrast IV Amt: 120 ml opti 320 EXAM: CT Angiography Neck With Intravenous Contrast CLINICAL HISTORY: Reason for exam: ams, ?sz. TECHNIQUE: Routine carotid CT angiography protocol was performed with intravenous contrast. NASCET criteria using the distal ICAs for comparison were used for evaluation of stenoses. CTDI is 6.63 mGy and DLP is 218.91 mGy-cm. Automated exposure control was utilized for the study. A dose lowering technique was utilized adhering to the principles of ALARA. MIP reconstructed images were created and reviewed. CONTRAST: Patient received 120 ml opti 320 of IV contrast COMPARISON: None. FINDINGS: VASCULATURE: Right common carotid artery: No occlusion or significant stenosis. No dissection. Right internal carotid artery: Mild atherosclerosis. Extracranial segment is patent with no occlusion or significant stenosis. No dissection. Right external carotid artery: Unremarkable. No occlusion. Right vertebral artery: Unremarkable. No occlusion or significant stenosis. No dissection. Left common carotid artery: No occlusion or significant stenosis. No dissection. Left internal carotid artery: Mild atherosclerosis. Extracranial segment is patent with no occlusion or significant stenosis. No dissection. Left external carotid artery: Unremarkable. No occlusion. Left vertebral artery: Unremarkable. No occlusion or significant stenosis. No dissection. NECK: Bones/joints: Multilevel cervical spondylosis. Soft tissues: No acute findings. Lung apices: Clear. CAROTID STENOSIS REFERENCE USING NASCET CRITERIA: % ICA stenosis = (1 - narrowest ICA diameter/diameter of distal cervical ICA) x 100. Mild - <50% stenosis. Moderate - 50-69% stenosis. Severe - 70-94% stenosis. Near occlusion - 95-99% stenosis. Occluded - 100% stenosis. IMPRESSION: No acute findings in the arteries of the neck. Electronically signed by: Elvis Johnson M.D. 03/05/23 05:19 AM Abdomen/Pelvis CT 03/05/23 01:59 Exam(s): CT ABDOMEN + PELVIS With Contrast IV Amt: 120 ml opti 350 EXAM: CT Abdomen and Pelvis With Intravenous Contrast CLINICAL HISTORY: Reason for exam: seizure, ? UTI. TECHNIQUE: Axial computed tomography images of the abdomen and pelvis with intravenous contrast. CTDI is 6.03 mGy and DLP is 309.33 mGy-cm. Automated exposure control was utilized for the study. A dose lowering technique was utilized adhering to the principles of ALARA. CONTRAST: Patient received 120 ml opti 350 of IV contrast COMPARISON: No relevant prior studies available. FINDINGS: Artifacts: Exam mildly motion degraded. Within this constraint: Lung bases: Unremarkable. No mass. No consolidation. ABDOMEN: Liver: Unremarkable. No mass. Gallbladder and bile ducts: Multiple cholelithiasis. No ductal dilation. Pancreas: Unremarkable. No mass. No ductal dilation. Spleen: Unremarkable. No splenomegaly. Adrenals: Unremarkable. No mass. Kidneys and ureters: Simple left renal cyst, no follow-up needed. No hydronephrosis. Stomach and bowel: Prominent fecal stasis throughout the colon. No obstruction. No mucosal thickening. PELVIS: Appendix: No findings to suggest acute appendicitis. Bladder: Unremarkable. No mass. Reproductive: Unremarkable as visualized. ABDOMEN and PELVIS: Intraperitoneal space: No free air. No significant fluid collection. Bones/joints: Prominent lumbar spondylosis with approximately 1 cm anterolisthesis of L4 on L5. Chronic/healing fractures of the bilateral pubic rami. Soft tissues: Unremarkable. Vasculature: Moderate atherosclerosis. No abdominal aortic aneurysm. Lymph nodes: No enlarged lymph nodes. IMPRESSION: Exam mildly motion degraded. Within this constraint: No acute findings in the abdomen or pelvis. Cholelithiasis. Prominent fecal stasis throughout the colon. Electronically signed by: Elvis Johnson M.D. 03/05/23 05:23 AM Discharge Plan Visit Data Chief Complaint: Seizure ED Provider: Daquan Fallon Discharge Problem: Witnessed seizure-like activity, Tongue biting, Elevated lactic acid level, Elevated troponin, Acute UTI Patient Disposition: Admitted As Inpatient Discharge Instructions Interventions: ED Discharge Assessment Last Done: 03/05/23 05:51
[2023-03-05 01:38] LABS: Basophils # (auto) 0.05 K/uL (0.00-0.20); Basophils % (auto) 0.8 %; Eosinophils # (auto) 0.18 K/uL (0.00-0.50); Eosinophils % (auto) 2.9 %; Hematocrit (blood only) 44.7 % (37.0-47.0); Immature Granulocytes # (auto) 0.04 K/uL (0.01-0.20); Immature Granulocytes % (auto) 0.6 %; Lymphocytes # (auto) 1.17 K/uL (1.20-3.40); Lymphocytes % (auto) 18.6 %; Mean Corpuscular Hgb Conc 33.6 g/dL (32.0-36.0); Mean Corpuscular Volume 92.4 fL (80.0-100.0); Mean Platelet Volume 10.7 fL (9.4-12.4); Monocytes # (auto) 0.38 K/uL (0.11-0.59); Monocytes % (auto) 6.1 %; Neutrophils # (auto) 4.46 K/uL (1.40-6.50); Platelet Count 238 K/uL (130-400); RDW Coefficient of Variation 13.4 % (11.5-14.5); RDW Standard Deviation 46.2 fL (36.4-46.3); Red Blood Count 4.84 M/uL (4.20-5.40); White Blood Count 6.28 K/ul (4.8-10.8)
[2023-03-05 01:47] LABS: Albumin Level 4.1 gm/dl (3.4-5.0); BUN Creatinine Ratio 15.9 (10-20); Bilirubin Direct 0.1 mg/dl (0-0.2); Bilirubin,Total 0.6 mg/dl (0.2-1.0); Calcium 9.6 mg/dl (8.6-10.3); Creatinine Clr Calc Pharmacy 39.9 ml/min; Est GFR (African American) 54.1 ml/min; Est GFR (Non-African American) 46.6 ml/min; Magnesium 2.2 mg/dl (1.7-2.4); Potassium 4.5 mmol/L (3.5-5.1); Total Protein 6.8 gm/dl (6.0-8.3)
[2023-03-05 01:55] LABS: Prothrombin Time 10.8 Seconds (9.0-12.0)
[2023-03-05 03:18] LABS: Base Excess VBG 0.1 mEq/L; HCO3 VBG 26 mmol/L; Oxygen Saturation VBG < 60.0 %; PCO2 VBG 46 mmHg (38-50); PO2 VBG 31 mmHg; pH VBG 7.36 (7.36-7.41)
[2023-03-05] MEDS ORDERED: IOVERSOL 350 MG 125mL Prefilled Syringe IV ONE (03:51)
[2023-03-05 04:33] LABS: Appearance Urine Turbid (Clear); Bacteria Urine Automated 4+ (Negative); Bilirubin Urine Negative (Negative); Blood Urine 1+ (Negative); Color Urine Yellow; Glucose Urine UA Negative (Negative); Ketones Urine Negative (Negative); Leukocyte Esterase Urine 3+ (Negative); Nitrite Urine Positive (Negative); Protein Urine Negative (Negative); RBC Urine Automated 0-4 /hpf (0-4); Specific Gravity Urine 1.039 (1.000-1.030); Urobilinogen Urine Negative (Negative); WBC Urine Automated >30 /hpf (0-5); pH Urine 6.5 (4.5-7.5)
[2023-03-05] MEDS ORDERED: cefTRIAXone SODIUM 2,000 MG/70 ML BAG IV STA (04:52)
--- NOTE | 2023-03-05 05:12 | CT Scan Report ---
Exam(s): CT HEAD Without Contrast EXAM: CT Head Without Intravenous Contrast CLINICAL HISTORY: Reason for exam: ams, ?sz. TECHNIQUE: Axial computed tomography images of the head/brain without intravenous contrast. CTDI is 37.87 mGy and DLP is 624.41 mGy-cm. Automated exposure control was utilized for the study. A dose lowering technique was utilized adhering to the principles of ALARA. COMPARISON: No relevant prior studies available. FINDINGS: Moderate motion degradation at the vertex. Within this constraint: There is no acute intracranial hemorrhage or major vascular territory infarct. No mass effect or midline shift seen. There is prominence of the ventricles and sulci consistent with generalized parenchymal volume loss. Scattered hypodensities throughout the periventricular and subcortical white matter are noted, likely sequela of chronic microvascular changes. The calvarium is intact. No acute findings in the orbits. The visualized paranasal sinuses and mastoid air cells are clear. IMPRESSION: Moderate motion degradation at the vertex. Within this constraint: No acute intracranial pathology. Generalized parenchymal volume loss and sequela of chronic microvascular ischemic angiopathy. Electronically signed by: Elvis Johnson M.D. 03/05/23 05:11 AM
--- NOTE | 2023-03-05 05:18 | History & Physical Report ---
Date of Service March 05, 2023 Assessment & Plan (1) Seizure-like activity: Plan: 87yo female presenting from [facility] with seizure like activity. No history of prior. No seizure at present. No trauma. Electrolytes largely normal. -Admit to medical -Seizure precautions (2) UTI (urinary tract infection): Plan: UA suggestive of infection -Follow culture -Ceftriaxone History of Present Illness Chief Complaint: seizure like activity Primary Care Provider: [facility] Virgie Santiago is an 87yo female with CAD, CKD and hypothyroidism presenting from [facility] with seizure-like activity. Around 23:15-23:25 patient had an episode of jaw clenching and unresponsiveness, tongue biting. She was slightly confused after the episode. No history of seizures. History obtained through chart review - patient does not provide many details of events prior to arrival Allergies Allergy/AdvReac Type Severity Reaction Status Date / Time atorvastatin Allergy Unknown Verified 03/05/23 06:19 codeine Allergy Unknown Verified 03/05/23 06:19 diazepam Allergy Unknown Verified 03/05/23 06:19 Penicillins Allergy Unknown Verified 03/05/23 06:19 Tetracyclines Allergy Unknown Verified 03/05/23 06:19 clonazepam Allergy Unknown Uncoded 03/05/23 06:19 Home Medications Medication Instructions Recorded Confirmed Type acetaminophen 325 mg tablet 650 mg PO BID PRN pain or fever 03/05/23 03/05/23 History amlodipine 2.5 mg tablet 2.5 mg PO DAILY 03/05/23 03/05/23 History aspirin 81 mg chewable tablet 81 mg PO DAILY 03/05/23 03/05/23 History bisacodyl 10 mg rectal suppository 10 mg VT DAILY PRN Constipation 03/05/23 03/05/23 History (Dulcolax (bisacodyl)) bupropion HCl 300 mg 24 hr tablet, 300 mg PO QAM 03/05/23 03/05/23 History extended release (Wellbutrin XL) cholecalciferol (vitamin D3) 50 50 mcg PO DAILY 03/05/23 03/05/23 History mcg (2,000 unit) tablet docusate sodium 100 mg capsule 100 mg PO BID 03/05/23 03/05/23 History levothyroxine 100 mcg tablet 100 mcg PO DAILY 03/05/23 03/05/23 History potassium chloride 10 mEq 20 meq PO DAILY 03/05/23 03/05/23 History tablet,extended release potassium, sodium phosphates 280 1 packet PO TID PRN 03/05/23 03/05/23 History mg-160 mg-250 mg oral powder hypophosphatemia packet (Phos-NaK) sennosides 8.6 mg tablet (senna) 17.2 mg PO BID 03/05/23 03/05/23 History tobramycin 0.3 % eye drops 2 drp ophthalmic (eye) Q4H 03/05/23 03/05/23 History venlafaxine 112.5 mg PO BID 03/05/23 03/05/23 History vibegron 75 mg tablet (Gemtesa) 75 mg PO DAILY 03/05/23 03/05/23 History Past Med/Surg History Medical History Breast cancer CAD (coronary artery disease) CKD (chronic kidney disease), stage III Depression Dyslipidemia Hypothyroidism Surgical History History of appendectomy History of cardiac catheterization History of partial mastectomy History of tonsillectomy History of vein stripping Family History Other Family history non-contributory Social History Smoking Status: Unknown if ever smoked Feels Safe at Home: Yes Review of Systems Review of Systems: All systems reviewed & are unremarkable except as noted in HPI & below Physical Exam Physical Exam: General: patient resting comfortably, arousable, NAD, non-toxic in appearance, AA&O to self Skin: warm, dry, intact, no rashes or lesions HEENT: NC/AT, PERRL, EOMI, anicteric sclera, conjunctiva without injection, external ear normal to inspection and nontender, nares patent, moist mucus membranes, dentition intact, no oropharyngeal lesions, neck supple, trachea midline, no LAD, no thyromegaly, no JVD Heart: +S1/S2, regular, no m/r/g Lungs: equal air entry bilaterally, no rales/rhonchi/wheezes Abd: +BS, soft, NT/ND, no masses/organomegaly/ascites Ext: warm, 2+ pulses in UE/LE bilaterally, no clubbing/cyanosis or edema Neuro: nonfocal, patient AA&O x 1, speech intact, no facial droop, moving all extremities on command with equal strength 5/5 Results & Data Results & Data Vital Signs (Past 12 Hours) Vital Signs Temp Pulse Pulse Resp BP BP Pulse Ox 03/05/23 05:01 79 20 151/96 H 94 03/05/23 04:01 78 16 104/86 97 03/05/23 03:00 81 15 137/87 95 03/05/23 02:30 79 14 135/81 97 03/05/23 02:00 81 16 117/82 95 03/05/23 01:30 77 26 H 125/93 94 03/05/23 01:02 70 18 87 L 03/05/23 01:02 72 03/05/23 01:16 80 21 125/77 94 03/05/23 01:08 94 03/05/23 00:46 37.0 C 74 23 133/60 90 O2 Del Method O2 Flow Rate 03/05/23 05:01 Room Air 03/05/23 04:01 Room Air 03/05/23 03:00 Nasal Cannula 2 03/05/23 02:30 Nasal Cannula 2 03/05/23 02:00 Nasal Cannula 2 03/05/23 01:30 Nasal Cannula 2 03/05/23 01:02 Room Air 03/05/23 01:02 03/05/23 01:16 Nasal Cannula 2 03/05/23 01:08 Nasal Cannula 2 03/05/23 00:46 Room Air Laboratory Results Laboratory Results WBC 6.28 K/ul (4.8-10.8) 03/05/23 01:10 RBC 4.84 M/uL (4.20-5.40) 03/05/23 01:10 Hgb 15.0 g/dl (12.0-16.0) 03/05/23 01:10 POC Hgb 15.3 g/dl (12.0-16.0) 03/05/23 01:18 Hct 44.7 % (37.0-47.0) 03/05/23 01:10 POC Hct 45 % (37-47) 03/05/23 01:18 MCV 92.4 fL (80.0-100.0) 03/05/23 01:10 MCH 31.0 pg (25.0-34.0) 03/05/23 01:10 MCHC 33.6 g/dL (32.0-36.0) 03/05/23 01:10 RDW Std Deviation 46.2 fL (36.4-46.3) 03/05/23 01:10 RDW Coeff of Ever 13.4 % (11.5-14.5) 03/05/23 01:10 Plt Count 238 K/uL (130-400) 03/05/23 01:10 MPV 10.7 fL (9.4-12.4) 03/05/23 01:10 Immature Gran % (Auto) 0.6 % 03/05/23 01:10 Neut % (Auto) 71.0 % 03/05/23 01:10 Lymph % (Auto) 18.6 % 03/05/23 01:10 [place] % (Auto) 6.1 % 03/05/23 01:10 Eos % (Auto) 2.9 % 03/05/23 01:10 Baso % (Auto) 0.8 % 03/05/23 01:10 Neut # (Auto) 4.46 K/uL (1.40-6.50) 03/05/23 01:10 Lymph # (Auto) 1.17 K/uL (1.20-3.40) L 03/05/23 01:10 [place] # (Auto) 0.38 K/uL (0.11-0.59) 03/05/23 01:10 Eos # (Auto) 0.18 K/uL (0.00-0.50) 03/05/23 01:10 Baso # (Auto) 0.05 K/uL (0.00-0.20) 03/05/23 01:10 Immature Gran # (Auto) 0.04 K/uL (0.01-0.20) 03/05/23 01:10 PT 10.8 Seconds (9.0-12.0) 03/05/23 01:10 INR 1.0 (0.9-1.1) 03/05/23 01:10 VBG pH 7.36 (7.36-7.41) 03/05/23 02:57 VBG pCO2 46 mmHg (38-50) 03/05/23 02:57 VBG pO2 31 mmHg 03/05/23 02:57 VBG HCO3 26 mmol/L 03/05/23 02:57 VBG O2 Saturation < 60.0 % 03/05/23 02:57 VBG Base Excess 0.1 mEq/L 03/05/23 02:57 POC Sodium 136 mmol/L (135-144) 03/05/23 01:18 Sodium 134 mmol/L (136-145) L 03/05/23 01:10 POC Potassium 4.5 mmol/L (3.3-5.0) 03/05/23 01:18 Potassium 4.5 mmol/L (3.5-5.1) 03/05/23 01:10 POC Chloride 103 mmol/L (101-112) 03/05/23 01:18 Chloride 102 mmol/L (98-107) 03/05/23 01:10 Carbon Dioxide 21 mmol/L (21-32) 03/05/23 01:10 POC Total CO2 20 mmol/L (24-31) L 03/05/23 01:18 Anion Gap 11 (3-11) 03/05/23 01:10 POC Anion Gap 19.0 mmol/L (16-25) 03/05/23 01:18 POC BUN 15 mg/dl (7-18) 03/05/23 01:18 BUN 17 mg/dl (6-23) 03/05/23 01:10 Creatinine 1.07 mg/dl (0.6-1.2) 03/05/23 01:10 POC Creatinine 1.0 mg/dl (0.6-1.3) 03/05/23 01:18 Est Cr Clr Drug Dosing 39.9 ml/min 03/05/23 01:10 Est GFR ( Amer) 54.1 ml/min 03/05/23 01:10 Est GFR (Non-Af Amer) 46.6 ml/min 03/05/23 01:10 BUN/Creatinine Ratio 15.9 (10-20) 03/05/23 01:10 Glucose 117 mg/dl (70-99(Fasting)) H 03/05/23 01:10 POC Glucose (other) 117 mg/dl (70-99) H 03/05/23 01:18 Lactate 2.5 mmol/L (0.4-2.0) H* 03/05/23 03:15 Calcium 9.6 mg/dl (8.6-10.3) 03/05/23 01:10 POC Ioniz Calcium [place] 1.15 mmol/l (1.12-1.32) 03/05/23 01:18 Magnesium 2.2 mg/dl (1.7-2.4) 03/05/23 01:10 Total Bilirubin 0.6 mg/dl (0.2-1.0) 03/05/23 01:10 Direct Bilirubin 0.1 mg/dl (0-0.2) 03/05/23 01:10 AST 14 U/L (13-39) 03/05/23 01:10 ALT 17 U/L (7-52) 03/05/23 01:10 Alkaline Phosphatase 65 U/L (34-104) 03/05/23 01:10 Troponin I High Sens 19.2 pg/ml (0-14) H 03/05/23 01:10 Total Protein 6.8 gm/dl (6.0-8.3) 03/05/23 01:10 Albumin 4.1 gm/dl (3.4-5.0) 03/05/23 01:10 Procalcitonin < 0.05 ng/ml (0-0.5) 03/05/23 01:10 Prolactin 19.67 ng/ml 03/05/23 01:10 Urine Color Yellow 03/05/23 04:16 Urine Appearance Turbid (Clear) A 03/05/23 04:16 Urine pH 6.5 (4.5-7.5) 03/05/23 04:16 Ur Specific [place] 1.039 (1.000-1.030) H 03/05/23 04:16 Urine Protein Negative (Negative) 03/05/23 04:16 Urine Glucose (UA) Negative (Negative) 03/05/23 04:16 Urine Ketones Negative (Negative) 03/05/23 04:16 Urine Blood 1+ (Negative) H 03/05/23 04:16 Urine Nitrite Positive (Negative) A 03/05/23 04:16 Urine Bilirubin Negative (Negative) 03/05/23 04:16 Urine Urobilinogen Negative (Negative) 03/05/23 04:16 Ur Leukocyte Esterase 3+ (Negative) H 03/05/23 04:16 Urine WBC (Auto) >30 /hpf (0-5) H 03/05/23 04:16 Urine RBC (Auto) 0-4 /hpf (0-4) 03/05/23 04:16 U Hyaline Cast (Auto) 1-5 /lpf (0-5) 03/05/23 04:16 U Epithel Cells (Auto) 10-20 /lpf (0-5) H 03/05/23 04:16 Urine Bacteria (Auto) 4+ (Negative) H 03/05/23 04:16 SARS-CoV-2, RNA, NAAT NEGATIVE (NEGATIVE) 03/05/23 05:[address] 03/05/23 01:57 Exam(s): CT HEAD Without Contrast EXAM: CT Head Without Intravenous Contrast CLINICAL HISTORY: Reason for exam: ams, ?sz. TECHNIQUE: Axial computed tomography images of the head/brain without intravenous contrast. CTDI is 37.87 mGy and DLP is 624.41 mGy-cm. Automated exposure control was utilized for the study. A dose lowering technique was utilized adhering to the principles of ALARA. COMPARISON: No relevant prior studies available. FINDINGS: Moderate motion degradation at the vertex. Within this constraint: There is no acute intracranial hemorrhage or major vascular territory infarct. No mass effect or midline shift seen. There is prominence of the ventricles and sulci consistent with generalized parenchymal volume loss. Scattered hypodensities throughout the periventricular and subcortical white matter are noted, likely sequela of chronic microvascular changes. The calvarium is intact. No acute findings in the orbits. The visualized paranasal sinuses and mastoid air cells are clear. IMPRESSION: Moderate motion degradation at the vertex. Within this constraint: No acute intracranial pathology. Generalized parenchymal volume loss and sequela of chronic microvascular ischemic angiopathy. Electronically signed by: Elvis Johnson M.D. 03/05/23 05:11 AM Head CTA 03/05/23 01:57 Exam(s): CTA HEAD With Contrast IV Amt: 120 ml opti 350 EXAM: CT Angiography Head With Intravenous Contrast CLINICAL HISTORY: Reason for exam: ams, ?sz. TECHNIQUE: Axial computed tomographic angiography images of the head with intravenous contrast. CTDI is 37.87 mGy and DLP is 624.41 mGy-cm. Automated exposure control was utilized for the study. A dose lowering technique was utilized adhering to the principles of ALARA. MIP reconstructed images were created and reviewed. CONTRAST: Patient received 120 ml opti 350 of IV contrast COMPARISON: Concurrent CT head FINDINGS: Right internal carotid artery: Atherosclerosis in the carotid siphon with mild stenosis. No aneurysm. Right anterior cerebral artery: No occlusion or significant stenosis. No aneurysm. Right middle cerebral artery: No occlusion or significant stenosis. No aneurysm. Right posterior cerebral artery: No occlusion or significant stenosis. No aneurysm. Right vertebral artery: Unremarkable as visualized. Left internal carotid artery: Atherosclerosis in the carotid siphon with mild stenosis. No aneurysm. Left anterior cerebral artery: No occlusion or significant stenosis. No aneurysm. Left middle cerebral artery: No occlusion or significant stenosis. No aneurysm. Left posterior cerebral artery: Normal variant origin. No occlusion or significant stenosis. No aneurysm. Left vertebral artery: Trace atherosclerosis, no occlusion.. Basilar artery: No occlusion or significant stenosis. No aneurysm. IMPRESSION: No large vessel occlusion, significant stenosis, aneurysm or vascular malformation. Electronically signed by: Elvis Johnson M.D. 03/05/23 05:15 AM Neck CTA 03/05/23 01:57 Exam(s): CTA NECK With Contrast IV Amt: 120 ml opti 320 EXAM: CT Angiography Neck With Intravenous Contrast CLINICAL HISTORY: Reason for exam: ams, ?sz. TECHNIQUE: Routine carotid CT angiography protocol was performed with intravenous contrast. NASCET criteria using the distal ICAs for comparison were used for evaluation of stenoses. CTDI is 6.63 mGy and DLP is 218.91 mGy-cm. Automated exposure control was utilized for the study. A dose lowering technique was utilized adhering to the principles of ALARA. MIP reconstructed images were created and reviewed. CONTRAST: Patient received 120 ml opti 320 of IV contrast COMPARISON: None. FINDINGS: VASCULATURE: Right common carotid artery: No occlusion or significant stenosis. No dissection. Right internal carotid artery: Mild atherosclerosis. Extracranial segment is patent with no occlusion or significant stenosis. No dissection. Right external carotid artery: Unremarkable. No occlusion. Right vertebral artery: Unremarkable. No occlusion or significant stenosis. No dissection. Left common carotid artery: No occlusion or significant stenosis. No dissection. Left internal carotid artery: Mild atherosclerosis. Extracranial segment is patent with no occlusion or significant stenosis. No dissection. Left external carotid artery: Unremarkable. No occlusion. Left vertebral artery: Unremarkable. No occlusion or significant stenosis. No dissection. NECK: Bones/joints: Multilevel cervical spondylosis. Soft tissues: No acute findings. Lung apices: Clear. CAROTID STENOSIS REFERENCE USING NASCET CRITERIA: % ICA stenosis = (1 - narrowest ICA diameter/diameter of distal cervical ICA) x 100. Mild - <50% stenosis. Moderate - 50-69% stenosis. Severe - 70-94% stenosis. Near occlusion - 95-99% stenosis. Occluded - 100% stenosis. IMPRESSION: No acute findings in the arteries of the neck. Electronically signed by: Elvis Johnson M.D. 03/05/23 05:19 AM Abdomen/Pelvis CT 03/05/23 01:59 Exam(s): CT ABDOMEN + PELVIS With Contrast IV Amt: 120 ml opti 350 EXAM: CT Abdomen and Pelvis With Intravenous Contrast CLINICAL HISTORY: Reason for exam: seizure, ? UTI. TECHNIQUE: Axial computed tomography images of the abdomen and pelvis with intravenous contrast. CTDI is 6.03 mGy and DLP is 309.33 mGy-cm. Automated exposure control was utilized for the study. A dose lowering technique was utilized adhering to the principles of ALARA. CONTRAST: Patient received 120 ml opti 350 of IV contrast COMPARISON: No relevant prior studies available. FINDINGS: Artifacts: Exam mildly motion degraded. Within this constraint: Lung bases: Unremarkable. No mass. No consolidation. ABDOMEN: Liver: Unremarkable. No mass. Gallbladder and bile ducts: Multiple cholelithiasis. No ductal dilation. Pancreas: Unremarkable. No mass. No ductal dilation. Spleen: Unremarkable. No splenomegaly. Adrenals: Unremarkable. No mass. Kidneys and ureters: Simple left renal cyst, no follow-up needed. No hydronephrosis. Stomach and bowel: Prominent fecal stasis throughout the colon. No obstruction. No mucosal thickening. PELVIS: Appendix: No findings to suggest acute appendicitis. Bladder: Unremarkable. No mass. Reproductive: Unremarkable as visualized. ABDOMEN and PELVIS: Intraperitoneal space: No free air. No significant fluid collection. Bones/joints: Prominent lumbar spondylosis with approximately 1 cm anterolisthesis of L4 on L5. Chronic/healing fractures of the bilateral pubic rami. Soft tissues: Unremarkable. Vasculature: Moderate atherosclerosis. No abdominal aortic aneurysm. Lymph nodes: No enlarged lymph nodes. IMPRESSION: Exam mildly motion degraded. Within this constraint: No acute findings in the abdomen or pelvis. Cholelithiasis. Prominent fecal stasis throughout the colon. Electronically signed by: Elvis Johnson M.D. 03/05/23 05:23 AM PG Care Time/CCT Total # of Minutes Spent Total Time Spent with Patient: Total time spent is greater than 50% in coordination of care (as documented) at patient's floor/unit and/or counseling patient: Coding Level of Care Code 30672 INT INP/OBS CARE 2/55MIN Diagnoses Seizure-like activity R56.9 UTI (urinary tract infection) N39.0
--- NOTE | 2023-03-05 05:23 | CT Scan Report ---
Exam(s): CT ABDOMEN + PELVIS With Contrast IV Amt: 120 ml opti 350 EXAM: CT Abdomen and Pelvis With Intravenous Contrast CLINICAL HISTORY: Reason for exam: seizure, ? UTI. TECHNIQUE: Axial computed tomography images of the abdomen and pelvis with intravenous contrast. CTDI is 6.03 mGy and DLP is 309.33 mGy-cm. Automated exposure control was utilized for the study. A dose lowering technique was utilized adhering to the principles of ALARA. CONTRAST: Patient received 120 ml opti 350 of IV contrast COMPARISON: No relevant prior studies available. FINDINGS: Artifacts: Exam mildly motion degraded. Within this constraint: Lung bases: Unremarkable. No mass. No consolidation. ABDOMEN: Liver: Unremarkable. No mass. Gallbladder and bile ducts: Multiple cholelithiasis. No ductal dilation. Pancreas: Unremarkable. No mass. No ductal dilation. Spleen: Unremarkable. No splenomegaly. Adrenals: Unremarkable. No mass. Kidneys and ureters: Simple left renal cyst, no follow-up needed. No hydronephrosis. Stomach and bowel: Prominent fecal stasis throughout the colon. No obstruction. No mucosal thickening. PELVIS: Appendix: No findings to suggest acute appendicitis. Bladder: Unremarkable. No mass. Reproductive: Unremarkable as visualized. ABDOMEN and PELVIS: Intraperitoneal space: No free air. No significant fluid collection. Bones/joints: Prominent lumbar spondylosis with approximately 1 cm anterolisthesis of L4 on L5. Chronic/healing fractures of the bilateral pubic rami. Soft tissues: Unremarkable. Vasculature: Moderate atherosclerosis. No abdominal aortic aneurysm. Lymph nodes: No enlarged lymph nodes. IMPRESSION: Exam mildly motion degraded. Within this constraint: No acute findings in the abdomen or pelvis. Cholelithiasis. Prominent fecal stasis throughout the colon. Electronically signed by: Elvis Johnson M.D. 03/05/23 05:23 AM
[2023-03-05] MEDS ORDERED: bisacodyL 10 MG SUPP PR PRN (06:21)
[2023-03-05] MEDS ORDERED: ONDANSETRON INJ 2 MG/ML 2 ML VIAL IV PRN (06:21)
[2023-03-05] MEDS ORDERED: ACETAMINOPHEN 325 MG TAB PO PRN (06:21)
--- NOTE | 2023-03-05 06:58 | XRay Report ---
XR chest 1V portable CLINICAL HISTORY: Sepsis TECHNIQUE: Single frontal radiograph of the chest was obtained. Comparison: Comparison is made to chest CT 02/18/2020 FINDINGS: No lines and tubes are seen. The cardiomediastinal silhouette is normal. Lungs are underinflated but clear. No evidence of pleural effusion or pneumothorax. IMPRESSION: Exam is limited by underinflation. No evidence of pneumonia is seen. ACT 112: Negative or not required by law. Electronically signed by: Yvan Marie M.D. 03/05/2023 6:57 AM
[2023-03-05 07:32] LABS: Phosphorus 3.2 mg/dl (2.5-4.9)
[2023-03-05 07:39] LABS: Troponin I High Sensitivity 20.2 pg/ml (0-14)
--- NOTE | 2023-03-05 07:56 | Hospitalist Progress Note ---
Date of Service March 05, 2023 Assessment & Plan (1) Seizure-like activity: Plan: - CT of the head and neck were negative for ischemia, ICH or severe narrowing occlusion of large vessels. - Etiology unclear, but imaging rules out large stroke, mass - Lactate initially elevated, now downtrending -Continue monitoring for seizure - Plan for outpatient follow-up with neurology (2) UTI (urinary tract infection): Plan: - Lactate: 2.5, repeat 1.4 - Urine WBC >30 - F/u urine culture - continue Ceftriaxone (3) Unspecified acute conjunctivitis, right eye: Plan: -continue Tobramycin drops (4) Elevated troponin: Plan: - troponin elevated on admission to 20, downtrending - Likely demand ischemia, denies chest pain at this time - EKG with incomplete RBBB, left anterior fascicular block, (5) Elevated lactic acid level: Plan: - likely secondary to seizure vs UTI - elevated on admission, have normalized (6) Depression: Plan: - continue Wellbutrin, venlafaxine (7) Hypothyroidism: Plan: - continue levothyroxine - last TSH 2.1 01/20/23 (8) CAD (coronary artery disease): Plan: - continue ASA Admission and Anticipated Discharge Date Admission Date: March 05, 2023 Supervising Physician Co-Signing Physician Notes Attending attestation Pt seen and examined in concert with Dr. Blackwell. In agreement with the documented findings as noted in the resident documentation with any exceptions or additions as noted here. Pleasantly confused in bed and complaining of mild right eye irritation without other complaint. Youngest son, not POA, at bedside providing supplemental history. On examination, S1/S2 nl RRR no MCG. CTAB. Abd NT/ND BS+ve. Some right eye irritation with rubbing with mild injection without notable purulence Seizure like activity - imaging studies without apparent inciting factor and without recurrence, lactate downtrending. Outpatient follow up with neurology, monitor for recurrent symptoms Urinary tract infection - continue ceftriaxone and f/u UCx Else see resident documentation as noted. Subjective Patient is a 87 year old female pt with hx of CAD, CKD, hypothyroism, HDL, and breast cancer presenting to the ED this morning with seizure like activity last night. Patient is unable to recall any events that happened prior to, during, or after the event. Patient's dementia is also impacting her ability to provide a clear history. According to the pt's son, the patient had a seizure like activity for about 10 minutes likely in bed at 12:15PM yesterday. Pt has jaw clenching, unresponsiveness and tongue biting followed with confusion and no recollection of the event. Pt reports no hx of seizure. At onset of event, pt does not remember having neck pain, chest pain, palpitation, dizziness, lightheadedness, aura, muscle weakness or stiffness, headaches, jerking, tongue biting. Concern of pain, redness and soreness in right eye with lacrimation and white discharge but pt is unable to remember when this onset. No pain with urination nor hematuria. Occasional increase in frequency of urination. Review of Systems Eyes: Right eye redness, soreness, pain, lacrimation, white discharge Ear, Nose, Mouth, Throat: moderate hearing loss Respiratory: No cough, SOB Cardiovascular: Additional Comments: no chest pain, heart palpitation Gastrointestinal: No abdominal pain, no melena, diarrhea, N/V Genitourinary: No pain with urination, occasionally increase in frequency of urination, no hematuria Musculoskeletal: No muscle weakness Neurologic: Confusion Physical Exam Constitutional: alert and in no acute distress, oriented to self and son but not place nor time. Eyes: PEERL, EOMI, red conjunctiva, discharge and pain on right eye ENMT: Bruising on left lateral tongue, normal dentition Respiratory: Lung CTA b/l, no rale, wheezing, rhonchi Cardiovascular: Normal r/r, no r/m/g, radial pulses 2+ b/l Gastrointestinal (Abdomen): normal bowel sounds, non tender to palpation. Musculoskeletal: strength 5/5 in upper extremity, 4/5 on lower extremity, no left foot flexion Neurologic: CN2-12 grossly intact, no dysarthria, no facial drooping Psychiatric: confused Results & Data Results & Data Vital Signs (Past 12 Hours) Vital Signs Temp Pulse Pulse Resp BP BP Pulse Ox 03/05/23 06:58 76 03/05/23 05:37 67 03/05/23 05:01 79 20 151/96 H 94 03/05/23 04:01 78 16 104/86 97 03/05/23 03:00 81 15 137/87 95 03/05/23 02:30 79 14 135/81 97 03/05/23 02:00 81 16 117/82 95 03/05/23 01:30 77 26 H 125/93 94 03/05/23 01:02 70 18 87 L 03/05/23 01:02 72 03/05/23 01:16 80 21 125/77 94 03/05/23 01:08 94 03/05/23 00:46 37.0 C 74 23 133/60 90 O2 Del Method O2 Flow Rate 03/05/23 06:58 03/05/23 05:37 03/05/23 05:01 Room Air 03/05/23 04:01 Room Air 03/05/23 03:00 Nasal Cannula 2 03/05/23 02:30 Nasal Cannula 2 03/05/23 02:00 Nasal Cannula 2 03/05/23 01:30 Nasal Cannula 2 03/05/23 01:02 Room Air 03/05/23 01:02 03/05/23 01:16 Nasal Cannula 2 03/05/23 01:08 Nasal Cannula 2 03/05/23 00:46 Room Air Laboratory Results Lactate: 2.5 Troponin 20.2 Urine WBC >[address] of head w/o contrast: Moderate motion degradation at the vertex. Within this constraint:No acute intracranial pathology. Generalized parenchymal volume loss and sequela of chronic microvascular ischemic angiopathy. CT of head with contrast: No large vessel occlusion, significant stenosis, aneurysm or vascular malformation. CTA of neck: No acute findings in the arteries of the neck. Medications Administered Instructions Recorded Confirmed Type acetaminophen 325 mg tablet 650 mg PO BID PRN pain or fever 03/05/23 03/05/23 History amlodipine 2.5 mg tablet 2.5 mg PO DAILY 03/05/23 03/05/23 History aspirin 81 mg chewable tablet 81 mg PO DAILY 03/05/23 03/05/23 History bisacodyl 10 mg rectal suppository 10 mg VT DAILY PRN Constipation 03/05/23 03/05/23 History (Dulcolax (bisacodyl)) bupropion HCl 300 mg 24 hr tablet, 300 mg PO QAM 03/05/23 03/05/23 History extended release (Wellbutrin XL) cholecalciferol (vitamin D3) 50 50 mcg PO DAILY 03/05/23 03/05/23 History mcg (2,000 unit) tablet docusate sodium 100 mg capsule 100 mg PO BID 03/05/23 03/05/23 History levothyroxine 100 mcg tablet 100 mcg PO DAILY 03/05/23 03/05/23 History potassium chloride 10 mEq 20 meq PO DAILY 03/05/23 03/05/23 History tablet,extended release potassium, sodium phosphates 280 1 packet PO TID PRN 03/05/23 03/05/23 History mg-160 mg-250 mg oral powder hypophosphatemia packet (Phos-NaK) sennosides 8.6 mg tablet (senna) 17.2 mg PO BID 03/05/23 03/05/23 History tobramycin 0.3 % eye drops 2 drp ophthalmic (eye) Q4H 03/05/23 03/05/23 History venlafaxine 112.5 mg PO BID 03/05/23 03/05/23 History vibegron 75 mg tablet (Gemtesa) 75 mg PO DAILY 03/05/23 03/05/23 History Resident Activity Tracking Resident Involvement: Resident Care Provided Care Provided: Adult Hospital Medicine
[2023-03-05] MEDS: TOBRAMYCIN SULF 0.3% OP SOLN 5 ML BTL OP SCH ×6 (08:19→21:49)
[2023-03-05] MEDS: SENNA 8.6 MG TAB PO SCH ×2 (08:34→21:01)
[2023-03-05] MEDS: VIBEGRON 75 MG TAB PO SCH (08:35)
[2023-03-05] MEDS: buPROPion XL 300 MG TABCR PO SCH (08:35)
[2023-03-05] MEDS: amLODIPine BESYLATE 5 MG TAB PO SCH (08:35)
[2023-03-05] MEDS: VENLAFAXINE HCL 37.5 MG TAB PO SCH ×2 (08:35→21:01)
[2023-03-05] MEDS: ASPIRIN 81 MG CHEW PO SCH (08:36)
[2023-03-05] MEDS: DOCUSATE SODIUM 100 MG CAP PO SCH ×2 (08:36→21:02)
[2023-03-05] MEDS ORDERED: LEVOTHYROXINE SODIUM 100 MCG TABLET PO SCH (09:00)
[2023-03-05] MEDS: LEVOTHYROXINE SODIUM 100 MCG TABLET PO SCH (09:47)
[2023-03-05] MEDS ORDERED: ARTIFICIAL TEARS OPB PRN (16:24)
--- NOTE | 2023-03-05 18:15 | Electrocardiogram Report ---
Test Reason : Blood Pressure : / mmHG Vent. Rate : 080 BPM Atrial Rate : 080 BPM P-R Int : 208 ms QRS Dur : 118 ms QT Int : 428 ms P-R-T Axes : 042 -54 012 degrees QTc Int : 493 ms Sinus rhythm with Premature atrial complexes Low voltage QRS Incomplete right bundle branch block Left anterior fascicular block Abnormal ECG No previous ECGs available Confirmed by Willam Palomino ([id number]) on 03/05/2023 6:15:12 PM Referred By: [facility] [place] Confirmed By:Ever Palomino
[2023-03-06] MEDS: TOBRAMYCIN SULF 0.3% OP SOLN 5 ML BTL OP SCH ×3 (02:48→10:21)
[2023-03-06] MEDS: LEVOTHYROXINE SODIUM 100 MCG TABLET PO SCH (05:20)
[2023-03-06] MEDS ORDERED: cefTRIAXone SODIUM 2,000 MG in DEXTROSE 5% 50 ML IV SCH (05:30)
[2023-03-06] MEDS: amLODIPine BESYLATE 5 MG TAB PO SCH (07:50)
[2023-03-06] MEDS: buPROPion XL 300 MG TABCR PO SCH (07:50)
[2023-03-06] MEDS: VIBEGRON 75 MG TAB PO SCH (07:50)
[2023-03-06] MEDS: ASPIRIN 81 MG CHEW PO SCH (07:50)
[2023-03-06 08:03] LABS: Hematocrit (blood only) 42.9 % (37.0-47.0); Hemoglobin 14.3 g/dl (12.0-16.0); Mean Corpuscular Hemoglobin 30.7 pg (25.0-34.0); Mean Corpuscular Hgb Conc 33.3 g/dL (32.0-36.0); Mean Corpuscular Volume 92.1 fL (80.0-100.0); Mean Platelet Volume 10.8 fL (9.4-12.4); Platelet Count 222 K/uL (130-400); RDW Coefficient of Variation 13.6 % (11.5-14.5); RDW Standard Deviation 46.1 fL (36.4-46.3); Red Blood Count 4.66 M/uL (4.20-5.40); White Blood Count 6.87 K/ul (4.8-10.8)
[2023-03-06 08:28] LABS: BUN Creatinine Ratio 13.1 (10-20); Calcium 9.3 mg/dl (8.6-10.3); Creatinine Clr Calc Pharmacy 50.9 ml/min; Est GFR (African American) 72.4 ml/min; Est GFR (Non-African American) 62.5 ml/min; Potassium 3.7 mmol/L (3.5-5.1)
[2023-03-06] MEDS: SENNA 8.6 MG TAB PO SCH (08:31)
[2023-03-06] MEDS: DOCUSATE SODIUM 100 MG CAP PO SCH (08:31)
[2023-03-06] MEDS: VENLAFAXINE HCL 37.5 MG TAB PO SCH (08:31)
--- NOTE | 2023-03-06 10:05 | Discharge Summary ---
Date of Service March 06, 2023 Admission HPI Per Admitting Provider Virgie Santiago is an 87yo female with CAD, CKD and hypothyroidism presenting from [facility] with seizure-like activity. Around 23:15-23:25 patient had an episode of jaw clenching and unresponsiveness, tongue biting. She was slightly confused after the episode. No history of seizures. History obtained through chart review - patient does not provide many details of events prior to arrival Admission Exam Per Admitting Provider General: patient resting comfortably, arousable, NAD, non-toxic in appearance, AA&O to self Skin: warm, dry, intact, no rashes or lesions HEENT: NC/AT, PERRL, EOMI, anicteric sclera, conjunctiva without injection, external ear normal to inspection and nontender, nares patent, moist mucus memb ranes, dentition intact, no oropharyngeal lesions, neck supple, trachea midline, no LAD, no thyromegaly, no JVD Heart: +S1/S2, regular, no m/r/g Lungs: equal air entry bilaterally, no rales/rhonchi/wheezes Abd: +BS, soft, NT/ND, no masses/organomegaly/ascites Ext: warm, 2+ pulses in UE/LE bilaterally, no clubbing/cyanosis or edema Neuro: nonfocal, patient AA&O x 1, speech intact, no facial droop, moving all extremities on command with equal strength 5/5 Principal Diagnosis seizure-like activity, UTI Discharge Exam Constitutional: well appearing, no acute distress HEENT: normocephalic, no conjunctival injection CV: regular rhythm, regular rate, no murmur, no LE edema Respiratory: Clear to auscultation bilaterally. No rhonchi, wheezes, or crackles. No increased work of breathing MSK: no gross deformities noted Skin: warm, dry, no rashes Neuro: alert but delirious, no FND noted Discharge Data Allergies Allergy/AdvReac Type Severity Reaction Status Date / Time atorvastatin Allergy Mild "ACHING Verified 03/05/23 06:38 MUSCLES AND BONES" codeine Allergy Unknown Unknown Verified 03/05/23 06:38 Penicillins Allergy Unknown Unknown Verified 03/05/23 06:38 tetracycline Allergy Unknown Unknown Verified 03/05/23 06:38 Tetracyclines Allergy Unknown Verified 03/05/23 06:38 clonazepam AdvReac Mild created Verified 03/05/23 06:38 anxiety opium tincture AdvReac Mild dizziness Verified 03/05/23 06:38 diazepam AdvReac Anxiety Verified 03/05/23 06:38 clonazepam Allergy Unknown Uncoded 03/05/23 06:38 Consultations 03/05/23 05:05 ED Decision to Admit Stat Ordered Studies 03/05/23 01:57 CT angio head w con Stat CT angio neck with con Stat IMPRESSION: No large vessel occlusion, significant stenosis, aneurysm or vascular malformation. CT head/brain wo con Stat IMPRESSION: Moderate motion degradation at the vertex. Within this constraint: No acute intracranial pathology. Generalized parenchymal volume loss and sequela of chronic microvascular ischemic angiopathy. 03/05/23 01:59 CT abd pelvis IV con only Stat IMPRESSION: Exam mildly motion degraded. Within this constraint: No acute findings in the abdomen or pelvis. Cholelithiasis. Prominent fecal stasis throughout the colon. Hospital Course (1) Seizure-like activity: Pt is a 87 yo female with PMH of CAD, CKD, depression, HLD, and hypothyroidism presenting due to observed seizure-like activity for 10 minutes. Pt currently at [facility]. Seizure-like activity - CT of the head and neck were negative for ischemia, ICH, or severe narrowing occlusion of large vessels. - Etiology unclear; imaging rules out large stroke, bleed, or mass - lactate initially elevated but downtrended - no further seizure-like activity during hospitalization - recommend outpatient follow up with neurology - also recommend strict observation of seizure protocols for repeat episodes: if pt displays seizure-like activity, place her on her side and make sure her mouth is clear of anything hazardous to swallow (gum, lozenges, dentures, etc) UTI - lactate initially elevated at 2.5; repeat downtrended to 1.4 - UA positive nitrite, 3+ LE; urine cx grew E. coli, sensitivities pending - pt appears to have urinary frequency/incontinence hx (follows with urology); suspect asymptomatic bacteriuria, however, d/t pt's delirium and inconsistent hx, cannot r/o infectious symptoms - s/p ceftriaxone x2; discharged with bactrim x3 days (total of 5 days of tx) Right eye acute conjunctivitis -continue outpatient tobramycin drops Elevated troponin - troponin elevated on admission to 20, downtrended - EKG showed incomplete RBBB and left anterior fascicular block - likely demand ischemia, denies chest pain during admission Elevated lactic acid level- resolved - likely secondary to seizure vs UTI Depression - continue wellbutrin and venlafaxine Hypothyroidism - continue levothyroxine - last TSH 2.1 01/20/23 CAD - continue ASA Constipation - noted on CTAP - recommended OTC laxatives (miralax) to aid with regular BM (2) UTI (urinary tract infection): (3) Unspecified acute conjunctivitis, right eye: (4) Elevated troponin: (5) Elevated lactic acid level: (6) Depression: (7) Hypothyroidism: (8) CAD (coronary artery disease): Total Time Total Time Spent Total Time Spent (In Minutes): as per attending attestation Discharge Plan Discharge Items Patient Disposition: Transfer Jail Fac Reason For Visit: SEIZURE-LIKE- ACTIVITY Discharge Diagnosis: seizure-like activity, UTI Activity: Per Instructions section Non-emergency contact: Primary Care Provider and Neurologist Call non-emergency contact if: you have any medication questions and your symptoms worsen Follow-up/Referrals: [facility] [Provider Group] (seizure-like activity) [facility] [Primary Care Provider] - Diet: Regular Diet Texture: Dental soft (bite-sized) Addtl Attending Provider Instructions: Pt is a 87 yo female with PMH of CAD, CKD, depression, HLD, and hypothyroidism presenting due to observed seizure-like activity for 10 minutes. Pt currently at [facility]. Seizure-like activity - CT of the head and neck were negative for ischemia, ICH, or severe narrowing occlusion of large vessels. - Etiology unclear; imaging rules out large stroke, bleed, or mass - lactate initially elevated but downtrended - no further seizure-like activity during hospitalization - recommend outpatient follow up with neurology - also recommend strict observation of seizure protocols for repeat episodes: if pt displays seizure-like activity, place her on her side and make sure her mouth is clear of anything hazardous to swallow (gum, lozenges, dentures, etc) UTI - lactate initially elevated at 2.5; repeat downtrended to 1.4 - UA positive nitrite, 3+ LE; urine cx grew E. coli, sensitivities pending - pt appears to have urinary frequency/incontinence hx (follows with urology); suspect asymptomatic bacteriuria, however, d/t pt's delirium and inconsistent hx, cannot r/o infectious symptoms - s/p ceftriaxone x2; discharged with bactrim x3 days (total of 5 days of tx) Right eye acute conjunctivitis -continue outpatient tobramycin drops Elevated troponin - troponin elevated on admission to 20, downtrended - EKG showed incomplete RBBB and left anterior fascicular block - likely demand ischemia, denies chest pain during admission Elevated lactic acid level- resolved - likely secondary to seizure vs UTI Depression - continue wellbutrin and venlafaxine Hypothyroidism - continue levothyroxine - last TSH 2.1 01/20/23 CAD - continue ASA Constipation - noted on CTAP - recommended OTC laxatives (miralax) to aid with regular BM Pending Studies at Discharge: No Stand-Alone Forms: My [facility] Skilled Items Patient informed of condition?: Yes DNR: No Discharge Level of Care: Skilled Communicable Disease: No Discharge Prognosis: Stable Lines: None Urinary Catheter: No Medications and DC Order Prescriptions: New sulfamethoxazole-trimethoprim [Bactrim DS] 800-160 mg tablet 1 tab PO BID 3 Days Qty: 6 0RF Continued acetaminophen 325 mg Tablet 650 mg PO Q12H MDD 3G Refresh Optive 0.5-0.9 % Drops 1 drp OPB QID acetaminophen [Tylenol] 325 mg Tablet 650 mg PO Q6H MDD 3G PRN (Reason: Fever Or Pain) Rx Instructions: GIVE FOR TEMP >100, PAIN # 1-10 UTI-Stat 3,875 mg/30 mL Liquid 30 ea PO QAM Rx Instructions: GIVE 30ML ORALLY, DAILY sennosides [senna] 8.6 mg Tablet 17.2 mg PO BID acetaminophen 325 mg Tablet 650 mg PO BID PRN (Reason: pain or fever) amlodipine 2.5 mg Tablet 2.5 mg PO DAILY levothyroxine 100 mcg Tablet 100 mcg PO DAILY bisacodyl [Dulcolax (bisacodyl)] 10 mg Suppository 10 mg NC DAILY PRN (Reason: Constipation) tobramycin 0.3 % Drops 2 drp OPHTHALMIC (EYE) Q4H Rx Instructions: End date 03/09/23 docusate sodium 100 mg Capsule 100 mg PO BID aspirin 81 mg Tablet,Chewable 81 mg PO DAILY bupropion HCl [Wellbutrin XL] 300 mg Tablet Extended Release 24 Hr 300 mg PO QAM cholecalciferol (vitamin D3) 50 mcg (2,000 unit) Tablet 50 mcg PO DAILY Gemtesa 75 mg Tablet 75 mg PO DAILY venlafaxine 112.5 mg PO BID Held potassium chloride 10 mEq Tablet Extended Release 20 meq PO DAILY Hold Instructions: Resume on 03/10/23. Resume after bactrim potassium, sodium phosphates [Phos-NaK] 280-160-250 mg Powder In Packet 1 packet PO TID PRN (Reason: hypophosphatemia) Hold Instructions: Resume on 03/10/23. Hold until after bactrim course Discharge Orders: Discharge Order (Routine); Ordered 03/06/23 Ordered By: Theresa Wilder/Other Patient Handouts: Safety During a Seizure, UTIs Understanding, First Aid: Seizures, When to Use Antibiotics Admission Data Admit Date/Time: 03/05/23 05:17 Attending Provider: Willam Reddy Admit Provider: Bernie Loera Primary Care Provider: [facility] Other Providers: Bernie Loera Other Interventions: Discharge Summary Assessment (RN) Last Done: 03/06/23 10:52 Supervising Physician Co-Signing Physician Notes Attending attestation Pt seen and examined in concert with Dr. Lloyd. In agreement with the documented findings as noted in the resident documentation with any exceptions or additions as noted here. Still pleasantly confused in bed. No longer complaining of right eye irritation, nor other complaints. On examination, S1/S2 nl RRR no MCG. CTAB. Abd NT/ND BS+ve. Improved right eye injection without notable purulence Seizure like activity - imaging studies without apparent inciting factor and without recurrence, lactate downtrending. Outpatient follow up with neurology, monitor for recurrent symptoms Urinary tract infection - E coli on BCx - transition to PO Bactrim DS and adjust as needed based on further sensitivities. Right eye conjunctivitis - continue tobramycin drops to complete course Else see resident documentation as noted. Total attending physician time spent with this patient's care on the day of discharge: 35 minutes. Resident Activity Tracking Resident Involvement: Resident Care Provided Care Provided: Adult Hospital Medicine
== END 2023-03-06 15:05 ==
LOC: EDSEX → ED 00:39 → EDINP 00:39 → MERGE 05:17 → SUATTDRO 05:17 → EDINP 18:46 → 2N 19:41